=== PATIENT | male | born 1945 | race Caucasian/White ===

== ENCOUNTER 2016-06-05 11:01 | Inpatient (IN) | payer OTHER ==
[~2016-06-05] VITALS: Ht 172.7 cm; Wt 78.9 kg
[~2016-06-05 11:01] MED LIST: ATV5 PO; ISOS30TA35 PO; LSN20 PO; LSX20 PO; MAGN400T6 PO; METO25TA56 PO; METO50TA17 PO; ROSU40TA PO; TERA1CAP63 PO
[2016-06-05] MEDS ORDERED: SODIUM CHLORIDE 0.9% 1000ML 1,000 ML IV STA (11:05)
--- NOTE | 2016-06-05 11:32 | DIAGNOSTIC IMAGING REPORT ---
CHEST ONE VIEW PORTABLE CLINICAL HISTORY: EVALUATE WEAKNESS dyspnea COMPARISON STUDY: 07/21/2015 FINDINGS: Stable cardiomegaly. Prior median sternotomy. Diaphragms smooth. Lungs are clear. IMPRESSION: Stable cardiomegaly. Otherwise negative study Electronically signed by: Maco Bah M.D. 06/05/2016 11:30 AM Dictated Date/Time: 06/05/2016 11:30 AM
[2016-06-05 11:42] LABS: INR 1.3 (0.9-1.1); PARTIAL THROMBOPLASTIN RATIO 1.1; PROTHROMBIN TIME (PATIENT) 13.7 SECONDS (9.0-12.0)
[2016-06-05 11:45] LABS: ISTAT CREATININE 1.7 mg/dl (0.6-1.3); ISTAT HEMOGLOBIN 16.3 g/dl (14.0-18.0); ISTAT IONIZED CALCIUM 0.97 mmol/l (1.12-1.32)
[2016-06-05 11:51] LABS: BUN/CREATININE RATIO 18.4 (10-20); CALCIUM 9.3 mg/dl (8.5-10.1); MAGNESIUM 2.5 mg/dl (1.8-2.4); POTASSIUM 3.8 mmol/L (3.5-5.1)
[2016-06-05 12:00] LABS: URINE APPEARANCE CLEAR (CLEAR); URINE BILIRUBIN NEG (NEG); URINE COLOR YELLOW; URINE NITRITE NEG (NEG); URINE SPECIFIC GRAVITY 1.015 (1.000-1.030); UROBILINOGEN NEG (NEG)
[2016-06-05 12:00] LABS: CKMB/CK RATIO 2.3 (0-3.0); THYROID STIMULATING HORMONE 2.7 uIu/ml (0.300-4.500)
[2016-06-05 12:05] LABS: ANISOCYTOSIS PRESENT; BASO % 0.5 %; BASO ABS # 0.03 K/uL (0-0.2); COMPLETE YES; ECHINOCYTES 1+; EOS % 9.6 %; HEMATOCRIT 42.4 % (42-52); IG% 0.2 %; LYMPH % 20.8 %; LYMPH ABS # 1.37 K/uL (1.2-3.4); MEAN CELL VOLUME 90.2 fL (80-100); MEAN CORPUSCULAR HEMOGLOBIN 30.4 pg (25-34); MEAN CORPUSCULAR HGB CONC 33.7 g/dl (32-36); MONO % 15.2 %; NEUT % 53.7 %; PLATELET COUNT 71 K/uL (130-400); WHITE BLOOD COUNT 6.59 K/uL (4.8-10.8)
[2016-06-05 12:06] LABS: MANUAL MICROSCOPIC REQUIRED? NO; REVIEW REQ? YES
--- NOTE | 2016-06-05 12:10 | DIAGNOSTIC IMAGING REPORT ---
HEAD CT NONCONTRAST CT DOSE: HISTORY: Mental status change EVALUATE WEAKNESS TECHNIQUE: Multiaxial CT images of the head were performed without the use of intravenous contrast. Comparison: None. Findings: The paranasal sinuses and mastoid air cells are clear. The calvarium and skull base are intact. The ventricles and sulci are within normal limits. There is no mass, hematoma, midline shift, or acute infarct. Impression: No acute intracranial abnormality. Electronically signed by: Maco Bah M.D. 06/05/2016 12:09 PM Dictated Date/Time: 06/05/2016 12:08 PM
--- NOTE | 2016-06-05 12:14 | DIAGNOSTIC IMAGING REPORT ---
CERVICAL SPINE CT CT DOSE: 1002.12 mGy.cm HISTORY: Trauma. Pain. fall TECHNIQUE: Multiaxial CT images of the cervical spine were performed and reformatted in the sagittal and coronal plane without the use of contrast. COMPARISON: None. FINDINGS: No fractures. No subluxation. Prevertebral soft tissues and the C1-C2 interval are intact. No pneumothorax. Degenerative disc changes noted throughout. Reversal of the normal cervical curvature IMPRESSION: Degenerative change. Muscular spasm. No acute bony abnormality. Electronically signed by: Maco Bah M.D. 06/05/2016 12:12 PM Dictated Date/Time: 06/05/2016 12:09 PM
--- NOTE | 2016-06-05 12:24 | DIAGNOSTIC IMAGING REPORT ---
CT SCAN OF THE FACIAL BONES WITHOUT IV CONTRAST CLINICAL HISTORY: Fall. COMPARISON STUDY: CT of the brain performed concurrently on 06/05/2016. TECHNIQUE: High-resolution CT scan of the facial bones is performed. Images are reviewed in the axial, sagittal, and coronal planes. IV contrast was not administered for this examination. FINDINGS: The skeletal structures are osteopenic. There is no evidence of facial bone fracture. The bony orbits are intact and the orbital contents are within normal limits. The zygomatic arches, nasal bones, and pterygoid plates are preserved. The maxilla and mandible are intact. There are no layering blood products within the paranasal sinuses. The sinuses and mastoids are clear. The visualized calvarium and upper cervical spine are maintained. Cervical spondylosis is partially imaged. Partially imaged brain parenchyma is within normal limits. There is right periorbital and premalar soft tissue contusion/hematoma. Calcified tonsilliths are observed. There are shotty cervical lymph nodes atherosclerotic calcification is noted in the carotid bulbs. IMPRESSION: 1. There is no evidence of facial bone fracture. 2. Right facial soft tissue contusion/hematoma. Electronically signed by: Adan Tejeda M.D. 06/05/2016 12:22 PM Dictated Date/Time: 06/05/2016 12:19 PM
[2016-06-05] MEDS ORDERED: TERA5CAP PO (13:09)
[2016-06-05] MEDS ORDERED: METO50TA16 PO ×2 (13:09)
[2016-06-05] MEDS ORDERED: TRAZ50TA35 PO (13:09)
[2016-06-05] MEDS ORDERED: CLON0.5T3 PO (13:09)
[2016-06-05] MEDS ORDERED: XYLOCAINE 1%/SOD BICARB 20 ML VIAL INFIL ONE (13:15)
--- NOTE | 2016-06-05 14:00 | EMERGENCY ROOM VISIT NOTE ---
ED Visit Note Patient was seen and evaluated at the request of my attending physician, Dr. Obando, for a right cheek and upper lip laceration. Please see Dr. Obando's dictation for full history of present illness and Emergency Department course outside of this repair. In short, the patient fell today, causing his injuries. On examination the patient has a 1.0 cm linear laceration over the right maxillary sinus as well as a 1.0 cm laceration through the upper lip. These lacerations both gape will require repair. Laceration repair. Patient elects to have their lacerations repaired. Verbal consent was obtained to perform the procedure. There is an abundance of materials available for the procedure. Patient is not allergic to latex. Using sterile technique the wounds were cleaned with Betadine. The area was sterilely draped. 2 ml of 1% buffered lidocaine was used to anesthetize the right cheek laceration and 2 mL of 1% buffered lidocaine was used to anesthetize the upper lip laceration. Once the patient was anesthetized, the wounds were copiously irrigated under pressure with sterile saline. The wounds were explored and there were no deep structures injured such as tendons, bone, or significant blood vessels. The CHEEK laceration was repaired using 3 simple interrupted 6-0 nylon sutures with the wound edges being well approximated. The LIP laceration was repaired using 3 simple interrupted 6-0 nylon sutures with the wound edges being well approximated. Hemostasis was achieved. The areas were cleaned. Patient tolerated the procedure well without complications. Blood loss was negligible. Problem List Medical Problems: (1) Coronary artery disease Status: Chronic (2) Diabetes Status: Chronic (3) Hypertension Status: Chronic Surgical Problems: (1) S/P CABG (coronary artery bypass graft) Status: Resolved Current/Historical Medications Scheduled Lisinopril (Lisinopril), 20 MG PO DAILY Magnesium Oxide (Mag-Ox), 400 MG PO DAILY Metoprolol Tartrate (Lopressor) (Lopressor), 50 MG PO QAM Metoprolol Tartrate (Lopressor) (Lopressor), 25 MG PO QPM Terazosin (Hytrin), 5 MG PO DAILY Trazodone Hcl (Trazodone), 50 MG PO HS Scheduled PRN Clonazepam (Klonopin), 1-2 TABS PO HS PRN for Insomnia Allergies Coded Allergies: No Known Allergies (Unverified , NONE, 07/21/15) Vital Signs Date Time Temp Pulse Resp B/P Pulse Ox O2 Delivery O2 Flow Rate FiO2 06/05/16 13:08 92 06/05/16 12:55 89 20 123/79 97 Room Air 06/05/16 11:27 95 06/05/16 11:20 36.6 94 20 129/92 95 Room Air 06/05/16 11:20 95 Room Air Laboratory Results 06/05/16 11:05 Red Blood Count 4.70, Mean Corpuscular Volume 90.2, Mean Corpuscular Hemoglobin 30.4, Mean Corpuscular Hemoglobin Concent 33.7, Neutrophils (%) (Auto) 53.7, Lymphocytes (%) (Auto) 20.8, Monocytes (%) (Auto) 15.2, Eosinophils (%) (Auto) 9.6, Basophils (%) (Auto) 0.5, Neutrophils # (Auto) 3.55, Lymphocytes # (Auto) 1.37, Monocytes # (Auto) 1.00, Eosinophils # (Auto) 0.63, Basophils # (Auto) 0.03 06/05/16 11:05 Test 06/05/16 11:05 06/05/16 11:29 06/05/16 11:40 White Blood Count 6.59 K/uL (4.8-10.8) Red Blood Count 4.70 M/uL (4.7-6.1) Hemoglobin 14.3 g/dL (14.0-18.0) Hematocrit 42.4 % (42-52) Mean Corpuscular Volume 90.2 fL (80-100) Mean Corpuscular Hemoglobin 30.4 pg (25-34) Mean Corpuscular Hemoglobin Concent 33.7 g/dl (32-36) Platelet Count 71 K/uL (130-400) Neutrophils (%) (Auto) 53.7 % Lymphocytes (%) (Auto) 20.8 % Monocytes (%) (Auto) 15.2 % Eosinophils (%) (Auto) 9.6 % Basophils (%) (Auto) 0.5 % Neutrophils # (Auto) 3.55 K/uL (1.4-6.5) Lymphocytes # (Auto) 1.37 K/uL (1.2-3.4) Monocytes # (Auto) 1.00 K/uL (0.11-0.59) Eosinophils # (Auto) 0.63 K/uL (0-0.5) Basophils # (Auto) 0.03 K/uL (0-0.2) RDW Standard Deviation 65.7 fL (36.4-46.3) RDW Coefficient of Variation 20.0 % (11.5-14.5) Immature Granulocyte % (Auto) 0.2 % Immature Granulocyte # (Auto) 0.01 K/uL (0.00-0.02) Anisocytosis PRESENT Echinocytes 1+ Prothrombin Time 13.7 SECONDS (9.0-12.0) Prothromb Time International Ratio 1.3 (0.9-1.1) Activated Partial Thromboplast Time 27.7 SECONDS (21.0-31.0) Partial Thromboplastin Ratio 1.1 Est Creatinine Clear Calc Drug Dose 32.3 ml/min Estimated GFR () 37.5 Estimated GFR (Non- 32.4 BUN/Creatinine Ratio 18.4 (10-20) Calcium Level 9.3 mg/dl (8.5-10.1) Magnesium Level 2.5 mg/dl (1.8-2.4) Total Bilirubin 1.4 mg/dl (0.2-1) Direct Bilirubin 0.6 mg/dl (0-0.2) Aspartate Amino Transf (AST/SGOT) 40 U/L (15-37) Alanine Aminotransferase (ALT/SGPT) 26 U/L (12-78) Alkaline Phosphatase 409 U/L (45-117) Total Creatine Kinase 96 U/L (39-308) Creatine Kinase MB 2.2 ng/ml (0.5-3.6) Creatine Kinase MB Ratio 2.3 (0-3.0) Troponin I 0.029 ng/ml (0-0.045) Total Protein 7.2 gm/dl (6.4-8.2) Albumin 4.2 gm/dl (3.4-5.0) Lipase 248 U/L (73-393) Thyroid Stimulating Hormone (TSH) 2.700 uIu/ml (0.300-4.500) Bedside Hemoglobin 16.3 g/dl (14.0-18.0) Bedside Hematocrit 48 % (42-52) Bedside Sodium 137 mEq/L (135-144) Bedside Potassium 4.2 mEq/L (3.3-5.0) Bedside Chloride 101 mEq/L (101-112) Bedside Total CO2 23 mEq/l (24-31) Anion Gap 17.0 mmol/L (16-25) Bedside Blood Urea Nitrogen 35 mg/dl (7-18) Bedside Creatinine 1.7 mg/dl (0.6-1.3) Bedside Glucose (other) 92 mg/dl (70-99) Bedside Ionized Calcium (Leif) 0.97 mmol/l (1.12-1.32) Urine Color YELLOW Urine Appearance CLEAR (CLEAR) Urine pH 6.0 (4.5-7.5) Urine Specific [place] 1.015 (1.000-1.030) Urine Protein 1+ (NEG) Urine Glucose (UA) NEG (NEG) Urine Ketones NEG (NEG) Urine Occult Blood TRACE (NEG) Urine Nitrite NEG (NEG) Urine Bilirubin NEG (NEG) Urine Urobilinogen NEG (NEG) Urine Leukocyte Esterase NEG (NEG) Urine WBC (Auto) 1-5 /hpf (0-5) Urine RBC (Auto) 0-4 /hpf (0-4) Urine Hyaline Casts (Auto) 1-5 /lpf (0-5) Urine Epithelial Cells (Auto) 5-10 /lpf (0-5) Urine Bacteria (Auto) NEG (NEG) Urine Renal Epithelial Cells /lpf (0-5) Medications Administered Medications (Trade) Dose Ordered Sig/Mojgan Route Start Time Stop Time Status Last Admin Dose Admin Sodium Chloride (Nss 1000ml) 1,000 ml @ 125 mls/hr Q8H STAT IV 06/05/16 11:05 06/05/16 19:04 06/05/16 13:01 125 MLS/HR Departure Information Referrals Jose Rader III, M.D. (PCP) Patient Instructions [facility]
[2016-06-05] MEDS ORDERED: NITROGLYCERIN 0.4 MG SL PER TAB CHARGE SL PRN (14:45)
[2016-06-05] MEDS ORDERED: IV FLUIDS COMPLETED PRN ×2 (14:45→15:00)
[2016-06-05] MEDS ORDERED: NTRGSL4 PO (15:03)
[2016-06-05] MEDS ORDERED: LORA0.5T12 PO (15:03)
[2016-06-05] MEDS ORDERED: ZNTT/150 PO (15:03)
[2016-06-05] MEDS ORDERED: ACET500T57 PO (15:03)
[2016-06-05] MEDS ORDERED: OMEG12006 PO (15:03)
[2016-06-05] MEDS ORDERED: ASPI-435 PO (15:03)
[2016-06-05] MEDS ORDERED: MULTTAB58 PO (15:03)
[2016-06-05] MEDS ORDERED: ROSU40TA PO (15:03)
[2016-06-05] MEDS ORDERED: TORS10TA14 PO (15:03)
--- NOTE | 2016-06-05 15:05 | Progress Note ---
Progress Note Date of Service Jun 05, 2016. Progress Note ATTENDING ADDENDUM care coordinated with DANILO Ross please refer to her notes for full details, I agree with her notes patient seen and examined, records reviewed by myself as well on exam, patient seen resting in bed, alert, conversant feels sore on his right lower rib cage area, but no dyspnea, cough denies headache, changes with vision, nausea reports episodes of dizziness lately, and this morning prior to "blacking out" denies confusion upon regaining consciousness no other symptoms VS noted and reviewed oriented x 3, not in distress, speaks in sentences with no effort nor accessory muscle use Head and Neck: (+) contusion on the right periorbital area, sutured laceration; (+) contusion on the right lip normal rate, regular rhythm, no murmurs clear breath sounds bilaterally, no rales/wheezes (+) faint erythema on the right lower rib cage with moderate tenderness non distended, soft, nontender no bipedal edema, erythema, warmth no neuro deficits Crea 2.0 Plt 71 EKG LBBB, chronic CT head: No acute process ASSESSMENT/PLAN> 70 year old male with history of Ischemic Cardiomyopathy EF 25-30%, CAD, CABG, HTN, CKD 3, presenting with syncope. SYNCOPE POSSIBLE ORTHOSTASIS Torsemide recently increased, has been having dizziness spells lately, crea increased to 2.0 hold diuretics gentle IV fluids RULE ARRHYTHMIA Tele monitoring RULE OUT PULMONARY EMBOLISM check D dimer if positive, check VQ scan ISCHEMIC CARDIOMYOPATHY EF 25-30% currently appears hypovolemic hold diuretics, gentle IV fluids other diagnoses and plan of care as per DANILO Ross's notes Palmer oMser MD
[2016-06-05] MEDS ORDERED: CLONAZEPAM 0.5 MG TAB PO PRN (15:15)
[2016-06-05] MEDS ORDERED: LORAZEPAM 0.5 MG TAB PO PRN (15:15)
--- NOTE | 2016-06-05 15:28 | EMERGENCY ROOM VISIT NOTE ---
History Report prepared by Veto: Josee Acuna Under the Supervision of: Dr. Jose Obando M.D. First contact with patient: 11:04 Stated Complaint: AMS/FALL History of Present Illness The patient is a 70 year old male who presents to the Emergency Room with complaints of a sudden syncopal episode that occurred prior to arrival. The patient states that he was going to get his taxes done and then he was found outside the [employer] face down. He states that he has been feeling fatigued, but denies any dizziness or lightheadedness today. The patient states that yesterday he had a near syncopal event after becoming dizzy. The patient notes that he had a recent change in his medication. He notes a history of a previous SC and CABG. Pt denies, headache, visual changes, neck pain, chest pain, breathing difficulties, nausea, vomiting, abdominal pain, back pain, extremity pain, numbness, weakness, open wounds, active bleeding, or other complaints. Source of History: patient Onset: prior to arrival Position: other (global) Quality: other (synocpal episode) Timing: other (sudden) Associated Symptoms: + fatigue Review of Systems See HPI for pertinent positives and negatives. A total of ten systems were reviewed and were otherwise negative. Past Medical & Surgical Medical Problems: (1) MARIANELA (acute kidney injury) (2) CHF (congestive heart failure) (3) Coronary artery disease (4) Diabetes (5) Hypertension (6) SOB (shortness of breath) (7) Syncope Surgical Problems: (1) S/P CABG (coronary artery bypass graft) Family History Cancer Diabetes mellitus Heart disease Social History Smoking Status: Former Smoker Marital Status: Housing Status: lives with family Occupation Status: employed Current/Historical Medications Scheduled Aspirin (Aspirin 81), 81 MG PO DAILY Lisinopril (Lisinopril), 20 MG PO HS Magnesium Oxide (Mag-Ox), 400 MG PO DAILY Metoprolol Tartrate (Lopressor) (Lopressor), 50 MG PO QAM Metoprolol Tartrate (Lopressor) (Lopressor), 25 MG PO QPM Multiple Vitamin (Multivitamin), 1 TAB PO DAILY [place]-3 Fatty Acids ([place] 3), 2 CAP PO DAILY Ranitidine (Zantac), 150 MG PO BID Rosuvastatin Calcium (Crestor), 40 MG PO HS Terazosin (Hytrin), 5 MG PO HS Torsemide (Demadex), 10 MG PO UD Scheduled PRN Acetaminophen (Acetaminophen), 2 TAB PO HS PRN for Pain Clonazepam (Klonopin), 1-2 TABS PO HS PRN for Insomnia Lorazepam (Lorazepam), 1 TAB PO BID PRN for Anxiety Nitroglycerin (Nitrostat), 1 TAB PO UD PRN for Chest Pain Allergies Coded Allergies: No Known Allergies (Unverified , NONE, 07/21/15) Physical Exam Vital Signs Date Time Temp Pulse Resp B/P Pulse Ox O2 Delivery O2 Flow Rate FiO2 06/05/16 15:00 96 20 124/96 96 Room Air 06/05/16 13:08 92 06/05/16 12:55 89 20 123/79 97 Room Air 06/05/16 11:27 95 06/05/16 11:20 36.6 94 20 129/92 95 Room Air 06/05/16 11:20 95 Room Air Physical Exam GENERAL: Awake, alert, tired appearing, no acute distress HEAD: Laceration and hematoma to right cheek with bruising noted. Laceration to inner right upper lip and contusion to lower lip and chin. No pittman sign. No raccoon eyes. EYES: Normal conjunctiva. PERRL. EARS: External ears normal. Right TM normal. Left TM normal. NOSE: Abrasion and swelling on nose. OROPHARYNX: Lips, tongue, and mucosa unremarkable. No erythema or exudate. NECK: C-collar in place. No tracheal deviation or JVD. No posterior midline tenderness. No step offs noted. RESPIRATORY: CTA bilaterally CARDIAC: Regular rate, frequent extra beats. ABDOMEN: Inspection reveals no abnormalities. Soft, non distended. No tenderness to palpation. No hernias. PELVIS: Stable to rock. SKIN: Normal. LYMPH: No adenopathy. MUSCULOSKELETAL: Upper and lower extremities are atraumatic. NEURO: GCS 15. Normal sensorium. No sensory or motor deficits noted. Medical Decision & Procedures ER Provider Diagnostic Interpretation: X ray results as stated below per my interpretation and radiologist interpretation. Other radiology results as stated below per my review and radiologist interpretation CT SCAN OF THE FACIAL BONES WITHOUT IV CONTRAST CLINICAL HISTORY: Fall. COMPARISON STUDY: CT of the brain performed concurrently on 06/05/2016. TECHNIQUE: High-resolution CT scan of the facial bones is performed. Images are reviewed in the axial, sagittal, and coronal planes. IV contrast was not administered for this examination. FINDINGS: The skeletal structures are osteopenic. There is no evidence of facial bone fracture. The bony orbits are intact and the orbital contents are within normal limits. The zygomatic arches, nasal bones, and pterygoid plates are preserved. The maxilla and mandible are intact. There are no layering blood products within the paranasal sinuses. The sinuses and mastoids are clear. The visualized calvarium and upper cervical spine are maintained. Cervical spondylosis is partially imaged. Partially imaged brain parenchyma is within normal limits. There is right periorbital and premalar soft tissue contusion/hematoma. Calcified tonsilliths are observed. There are shotty cervical lymph nodes atherosclerotic calcification is noted in the carotid bulbs. IMPRESSION: 1. There is no evidence of facial bone fracture. 2. Right facial soft tissue contusion/hematoma. Electronically signed by: Adan Tejeda M.D. 06/05/2016 12:22 PM Dictated Date/Time: 06/05/2016 12:[address]AST CT DOSE: HISTORY: Mental status change EVALUATE WEAKNESS TECHNIQUE: Multiaxial CT images of the head were performed without the use of intravenous contrast. Comparison: None. Findings: The paranasal sinuses and mastoid air cells are clear. The calvarium and skull base are intact. The ventricles and sulci are within normal limits. There is no mass, hematoma, midline shift, or acute infarct. Impression: No acute intracranial abnormality. Electronically signed by: Maco Bah M.D. 06/05/2016 12:09 PM Dictated Date/Time: 06/05/2016 12:08 PM CHEST ONE VIEW PORTABLE CLINICAL HISTORY: EVALUATE WEAKNESS dyspnea COMPARISON STUDY: 07/21/2015 FINDINGS: Stable cardiomegaly. Prior median sternotomy. Diaphragms smooth. Lungs are clear. IMPRESSION: Stable cardiomegaly. Otherwise negative study Electronically signed by: Maco Bah M.D. 06/05/2016 11:30 AM Dictated Date/Time: 06/05/2016 11:[address] DOSE: 1002.12 mGy.cm HISTORY: Trauma. Pain. fall TECHNIQUE: Multiaxial CT images of the cervical spine were performed and reformatted in the sagittal and coronal plane without the use of contrast. COMPARISON: None. FINDINGS: No fractures. No subluxation. Prevertebral soft tissues and the C1-C2 interval are intact. No pneumothorax. Degenerative disc changes noted throughout. Reversal of the normal cervical curvature IMPRESSION: Degenerative change. Muscular spasm. No acute bony abnormality. Electronically signed by: Maco Bah M.D. 06/05/2016 12:12 PM Dictated Date/Time: 06/05/2016 12:09 PM Laboratory Results 06/05/16 11:05 Red Blood Count 4.70, Mean Corpuscular Volume 90.2, Mean Corpuscular Hemoglobin 30.4, Mean Corpuscular Hemoglobin Concent 33.7, Neutrophils (%) (Auto) 53.7, Lymphocytes (%) (Auto) 20.8, Monocytes (%) (Auto) 15.2, Eosinophils (%) (Auto) 9.6, Basophils (%) (Auto) 0.5, Neutrophils # (Auto) 3.55, Lymphocytes # (Auto) 1.37, Monocytes # (Auto) 1.00, Eosinophils # (Auto) 0.63, Basophils # (Auto) 0.03 06/05/16 11:05 Test 06/05/16 11:05 06/05/16 11:29 06/05/16 11:40 White Blood Count 6.59 K/uL (4.8-10.8) Red Blood Count 4.70 M/uL (4.7-6.1) Hemoglobin 14.3 g/dL (14.0-18.0) Hematocrit 42.4 % (42-52) Mean Corpuscular Volume 90.2 fL (80-100) Mean Corpuscular Hemoglobin 30.4 pg (25-34) Mean Corpuscular Hemoglobin Concent 33.7 g/dl (32-36) Platelet Count 71 K/uL (130-400) Neutrophils (%) (Auto) 53.7 % Lymphocytes (%) (Auto) 20.8 % Monocytes (%) (Auto) 15.2 % Eosinophils (%) (Auto) 9.6 % Basophils (%) (Auto) 0.5 % Neutrophils # (Auto) 3.55 K/uL (1.4-6.5) Lymphocytes # (Auto) 1.37 K/uL (1.2-3.4) Monocytes # (Auto) 1.00 K/uL (0.11-0.59) Eosinophils # (Auto) 0.63 K/uL (0-0.5) Basophils # (Auto) 0.03 K/uL (0-0.2) RDW Standard Deviation 65.7 fL (36.4-46.3) RDW Coefficient of Variation 20.0 % (11.5-14.5) Immature Granulocyte % (Auto) 0.2 % Immature Granulocyte # (Auto) 0.01 K/uL (0.00-0.02) Anisocytosis PRESENT Echinocytes 1+ Prothrombin Time 13.7 SECONDS (9.0-12.0) Prothromb Time International Ratio 1.3 (0.9-1.1) Activated Partial Thromboplast Time 27.7 SECONDS (21.0-31.0) Partial Thromboplastin Ratio 1.1 D-Dimer 1340 ug/L FEU (0-500) Est Creatinine Clear Calc Drug Dose 32.3 ml/min Estimated GFR () 37.5 Estimated GFR (Non- 32.4 BUN/Creatinine Ratio 18.4 (10-20) Calcium Level 9.3 mg/dl (8.5-10.1) Magnesium Level 2.5 mg/dl (1.8-2.4) Total Bilirubin 1.4 mg/dl (0.2-1) Direct Bilirubin 0.6 mg/dl (0-0.2) Aspartate Amino Transf (AST/SGOT) 40 U/L (15-37) Alanine Aminotransferase (ALT/SGPT) 26 U/L (12-78) Alkaline Phosphatase 409 U/L (45-117) Total Creatine Kinase 96 U/L (39-308) Creatine Kinase MB 2.2 ng/ml (0.5-3.6) Creatine Kinase MB Ratio 2.3 (0-3.0) Troponin I 0.029 ng/ml (0-0.045) Total Protein 7.2 gm/dl (6.4-8.2) Albumin 4.2 gm/dl (3.4-5.0) Lipase 248 U/L (73-393) Thyroid Stimulating Hormone (TSH) 2.700 uIu/ml (0.300-4.500) Bedside Hemoglobin 16.3 g/dl (14.0-18.0) Bedside Hematocrit 48 % (42-52) Bedside Sodium 137 mEq/L (135-144) Bedside Potassium 4.2 mEq/L (3.3-5.0) Bedside Chloride 101 mEq/L (101-112) Bedside Total CO2 23 mEq/l (24-31) Anion Gap 17.0 mmol/L (16-25) Bedside Blood Urea Nitrogen 35 mg/dl (7-18) Bedside Creatinine 1.7 mg/dl (0.6-1.3) Bedside Glucose (other) 92 mg/dl (70-99) Bedside Ionized Calcium (Leif) 0.97 mmol/l (1.12-1.32) Urine Color YELLOW Urine Appearance CLEAR (CLEAR) Urine pH 6.0 (4.5-7.5) Urine Specific [place] 1.015 (1.000-1.030) Urine Protein 1+ (NEG) Urine Glucose (UA) NEG (NEG) Urine Ketones NEG (NEG) Urine Occult Blood TRACE (NEG) Urine Nitrite NEG (NEG) Urine Bilirubin NEG (NEG) Urine Urobilinogen NEG (NEG) Urine Leukocyte Esterase NEG (NEG) Urine WBC (Auto) 1-5 /hpf (0-5) Urine RBC (Auto) 0-4 /hpf (0-4) Urine Hyaline Casts (Auto) 1-5 /lpf (0-5) Urine Epithelial Cells (Auto) 5-10 /lpf (0-5) Urine Bacteria (Auto) NEG (NEG) Urine Renal Epithelial Cells /lpf (0-5) Laboratory results reviewed by me Medications Administered Medications (Trade) Dose Ordered Sig/Mojgan Route Start Time Stop Time Status Last Admin Dose Admin Sodium Chloride (Nss 1000ml) 1,000 ml @ 125 mls/hr Q8H STAT IV 06/05/16 11:05 06/05/16 19:04 06/05/16 13:01 125 MLS/HR ECG Indication: syncope Rate (beats per minute): 91 Rhythm: sinus rhythm Findings: LBBB, PVC (frequent), left axis deviation Comparison ECG Date: 07/21/15 Change: no significant change ED Course 1105: Ordered Sodium Chloride 1000 ml @ 125 mls/hr IV. 1122: The patient was evaluated in room C2B. A complete history and physical exam was performed. 1315: The lacerations were repaired by Dieudonne Shah PA-C. See his note for further detail. Ordered Lidocaine HCl 20 ml INFIL. 1343: I discussed the patients case with Feliciano Novoa PA-C. She is going to evaluate the patient for further treatment. 1348: I reevaluated the patient and he is resting comfortably. I discussed the exam findings with him and I discussed the treatment plan. He verbalized complete understanding and agreement. He will be evaluated for further treatment. Medical Decision Triage Nursing notes reviewed. The patient's presentation and history were concerning for syncope. Etiologies such as vasovagal event, fracture, soft tissue, infection, hypoglycemia, electrolyte abnormalities, cardiac sources, intracerebral event, toxicologic, neurologic, as well as others were entertained. The patient was evaluated. He did suffer some soft tissue lacerations and contusions. His ECG was abnormal but was not significantly different than prior. His imaging did not reveal any evidence of intracranial bleeding. Soft tissue injury only. No fracture. His CBC and chemistry are unremarkable. He did have some mild elevation of his creatinine compared to prior. The patient' s urinalysis was unremarkable. LFTs were minimally elevated although the patient denies any preceding GI symptoms. Laceration repair done by Dieudonne Shah PA-C. The patient was reassessed and was doing well. He had a consultation placed with internal medicine. The patient was evaluated in the Emergency Room due to his sudden syncopal episode. The chart was completed utilizing [employer] Speech voice recognition software. Grammatical errors, random word insertions, pronoun errors, and incomplete sentences are an occasional consequence of this system due to software limitations, ambient noise, and hardware issues. Any formal questions or concerns about the content, text, or information contained within the body of this dictation should be directly addressed to the physician for clarification. Consults Time Called: 1340 Consulting Physician: Feliciano Novoa PA-C Returned Call: 1348 I discussed the patients case with Feliciano Novoa PA-C. She is going to evaluate the patient for further treatment. Impression Primary Impression: Syncope Additional Impressions: Laceration of right cheek Laceration of lip Facial contusion Scribe Attestation The scribe's documentation has been prepared under my direction and personally reviewed by me in its entirety. I confirm that the note above accurately reflects all work, treatment, procedures, and medical decision making performed by me. Departure Information Dispostion Being Evaluated By Hospitalist Referrals Jose Rader III, M.D. (PCP) Problem Qualifiers Primary Impression: Syncope Syncope type: unspecified Qualified Codes: R55 - Syncope and collapse Additional Impressions: Laceration of right cheek Encounter type: initial encounter Qualified Codes: S01.411A - Laceration without foreign body of right cheek and temporomandibular area, initial encounter Laceration of lip Encounter type: initial encounter Qualified Codes: S01.511A - Laceration without foreign body of lip, initial encounter Facial contusion Encounter type: initial encounter Qualified Codes: S00.83XA - Contusion of other part of head, initial encounter
--- NOTE | 2016-06-05 15:56 | History and Physical ---
History & Physical Date & Time of Service: Jun 05, 2016 at 14:49 Chief Complaint: Ams/Fall Primary Care Physician: Jose Rader III, M.D. History of Present Illness Source: patient, clinic records This is a 70 year old male with PMH of ischemic cardiomyopathy, EF 25-29% in 2016, LBBB, frequent PVC's, CAD s/p CABG, HTN, LUDWIN on CPAP, and other problems listed below who presents to the ED with syncope. Patient was recently seen in clinic by An Hanson PA-C on 05/28/16 was noted to be in acute decompensated HF with volume overload and torsemide dose was increased to 20 mg qam. Then yesterday patient was instructed to increase to 20 mg qam and 10 mg in afternoon. Yesterday and today felt dizzy described as spinning sensation while standing. This has happened intermittently in the past attributed to BP medication. Today did not take torsemide and did not eat breakfast. He was feeling tired today, then while walking in parking lot, possibly felt dizzy beforehand, then had syncopal episode. He was found by a passerby who called 911. Patient awoke when EMS had already arrived. Unclear how long he was down. No reported seizure activity. Was oriented when he awoke. He sustained facial lacerations which were sutured in the ER. Has soreness right rib area. No other injury. He reported having 3/10 central non-radiating chest burning while in the ER attributed to indigestion which resolved when he drank water. He reports similar discomfort in the past which resolved with Tums. Has ongoing intermittent nausea and decreased appetite for months. Patient notes increased CRESPO x 1 week. Noticed bilateral LE edema yesterday evening. Weight is up approx 2 kg from cardiology visit on 05/28/16. Has increased dry cough past few days with postnasal drip. He denies fever, chills, diaphoresis, CARRILLO, vision change, weakness, numbness, dyspnea at rest, orthopnea, palpitations, vomiting, diarrhea , calf pain. No hx of VTE. Denies hx of abnormal bleeding. Past Medical/Surgical History Medical Problems: (1) Coronary artery disease Status: Chronic (2) Dyslipidemia Status: Chronic (3) Frequent PVCs Status: Chronic (4) Hypertension Status: Chronic (5) Ischemic cardiomyopathy Permanent Comment: EF 25-29% on 04/2016 echo Status: Chronic (6) LBBB (left bundle branch block) Status: Chronic (7) LUDWIN on CPAP Status: Chronic (8) Osteoarthritis Status: Chronic (9) Psoriatic arthritis Status: Chronic Surgical Problems: (1) S/P CABG (coronary artery bypass graft) Status: Resolved Family History Cancer Cardiac disorder FATHER (CHF) MOTHER (CHF) SISTER Depression Diabetes mellitus SISTER Heart disease BROTHER Social History Smoking Status: Former Smoker (quit decades ago) Alcohol Use: occasionally Drug Use: none Marital Status: Housing status: lives with family Occupational Status: employed Multi-Drug Resistant Organisms History of MDRO: No Allergies Coded Allergies: No Known Allergies (Unverified , NONE, 07/21/15) Home Medications Scheduled Aspirin (Aspirin 81), 81 MG PO DAILY Lisinopril (Lisinopril), 20 MG PO HS Magnesium Oxide (Mag-Ox), 400 MG PO DAILY Metoprolol Tartrate (Lopressor) (Lopressor), 50 MG PO QAM Metoprolol Tartrate (Lopressor) (Lopressor), 25 MG PO QPM Multiple Vitamin (Multivitamin), 1 TAB PO DAILY Longford-3 Fatty Acids ([place]ford 3), 2 CAP PO DAILY Ranitidine (Zantac), 150 MG PO BID Rosuvastatin Calcium (Crestor), 40 MG PO HS Terazosin (Hytrin), 5 MG PO HS Torsemide (Demadex), 10 MG PO UD Scheduled PRN Acetaminophen (Acetaminophen), 2 TAB PO HS PRN for Pain Clonazepam (Klonopin), 1-2 TABS PO HS PRN for Insomnia Lorazepam (Lorazepam), 1 TAB PO BID PRN for Anxiety Nitroglycerin (Nitrostat), 1 TAB PO UD PRN for Chest Pain Review of Systems Ten point ROS performed with pertinent positives and negatives noted in HPI. 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) Head: normocephalic, + evidence of trama Eyes: normal inspection, PERRL, EOMI ENT: hearing grossly normal, pharynx normal, + pertinent finding (dry oral mucosa) Neck: supple, no JVD, trachea midline Respiratory/Chest: lungs clear, normal breath sounds, no respiratory distress, no accessory muscle use Cardiovascular: regular rate, rhythm, no murmur Abdomen/GI: normal bowel sounds, non tender, soft Extremities/Musculoskelatal: no calf tenderness, no pedal edema Neurologic/Psych: alert, normal mood/affect, oriented x 3, + pertinent finding (grossly nonfocal) Skin: warm/dry, + pertinent finding (ecchymosis and sutured laceration right periorbital area, repaired laceration on upper lip) Diagnostics Laboratory Results Results Past 24 Hours Test 06/05/16 11:05 06/05/16 11:29 06/05/16 11:40 06/05/16 14:45 Range/Units White Blood Count 6.59 4.8-10.8 K/uL Red Blood Count 4.70 4.7-6.1 M/uL Hemoglobin 14.3 14.0-18.0 g/dL Hematocrit 42.4 42-52 % Mean Corpuscular Volume 90.2 80-100 fL Mean Corpuscular Hemoglobin 30.4 25-34 pg Mean Corpuscular Hemoglobin Concent 33.7 32-36 g/dl Platelet Count 71 130-400 K/uL Neutrophils (%) (Auto) 53.7 % Lymphocytes (%) (Auto) 20.8 % Monocytes (%) (Auto) 15.2 % Eosinophils (%) (Auto) 9.6 % Basophils (%) (Auto) 0.5 % Neutrophils # (Auto) 3.55 1.4-6.5 K/uL Lymphocytes # (Auto) 1.37 1.2-3.4 K/uL Monocytes # (Auto) 1.00 0.11-0.59 K/uL Eosinophils # (Auto) 0.63 0-0.5 K/uL Basophils # (Auto) 0.03 0-0.2 K/uL RDW Standard Deviation 65.7 36.4-46.3 fL RDW Coefficient of Variation 20.0 11.5-14.5 % Immature Granulocyte % (Auto) 0.2 % Immature Granulocyte # (Auto) 0.01 0.00-0.02 K/uL Anisocytosis PRESENT Echinocytes 1+ Prothrombin Time 13.7 9.0-12.0 SECONDS Prothromb Time International Ratio 1.3 0.9-1.1 Activated Partial Thromboplast Time 27.7 21.0-31.0 SECONDS Partial Thromboplastin Ratio 1.1 Sodium Level 139 136-145 mmol/L Potassium Level 3.8 3.5-5.1 mmol/L Chloride Level 100 98-107 mmol/L Carbon Dioxide Level 29 21-32 mmol/L Anion Gap 10.0 17.0 16-25 mmol/L Blood Urea Nitrogen 37 7-18 mg/dl Creatinine 2.00 0.60-1.40 mg/dl Est Creatinine Clear Calc Drug Dose 32.3 ml/min Estimated GFR () 37.5 Estimated GFR (Non- 32.4 BUN/Creatinine Ratio 18.4 10-20 Random Glucose 91 70-99 mg/dl Calcium Level 9.3 8.5-10.1 mg/dl Magnesium Level 2.5 1.8-2.4 mg/dl Total Bilirubin 1.4 0.2-1 mg/dl Direct Bilirubin 0.6 0-0.2 mg/dl Aspartate Amino Transf (AST/SGOT) 40 15-37 U/L Alanine Aminotransferase (ALT/SGPT) 26 12-78 U/L Alkaline Phosphatase 409 45-117 U/L Total Creatine Kinase 96 39-308 U/L Creatine Kinase MB 2.2 0.5-3.6 ng/ml Creatine Kinase MB Ratio 2.3 0-3.0 Troponin I 0.029 0-0.045 ng/ml Total Protein 7.2 6.4-8.2 gm/dl Albumin 4.2 3.4-5.0 gm/dl Lipase 248 73-393 U/L Thyroid Stimulating Hormone (TSH) 2.700 0.300-4.500 uIu/ml Bedside Hemoglobin 16.3 14.0-18.0 g/dl Bedside Hematocrit 48 42-52 % Bedside Sodium 137 135-144 mEq/L Bedside Potassium 4.2 3.3-5.0 mEq/L Bedside Chloride 101 101-112 mEq/L Bedside Total CO2 23 24-31 mEq/l Bedside Blood Urea Nitrogen 35 7-18 mg/dl Bedside Creatinine 1.7 0.6-1.3 mg/dl Bedside Glucose (other) 92 70-99 mg/dl Bedside Ionized Calcium (Leif) 0.97 1.12-1.32 mmol/l Urine Color YELLOW Urine Appearance CLEAR CLEAR Urine pH 6.0 4.5-7.5 Urine Specific [place] 1.015 1.000-1.030 Urine Protein 1+ NEG Urine Glucose (UA) NEG NEG Urine Ketones NEG NEG Urine Occult Blood TRACE NEG Urine Nitrite NEG NEG Urine Bilirubin NEG NEG Urine Urobilinogen NEG NEG Urine Leukocyte Esterase NEG NEG Urine WBC (Auto) 1-5 0-5 /hpf Urine RBC (Auto) 0-4 0-4 /hpf Urine Hyaline Casts (Auto) 1-5 0-5 /lpf Urine Epithelial Cells (Auto) 5-10 0-5 /lpf Urine Bacteria (Auto) NEG NEG Urine Renal Epithelial Cells 0-5 /lpf Microbiology Results 06/05/16 Blood Culture, Received Pending 06/05/16 Blood Culture, Received Pending 06/05/16 Urine Culture, Received Pending Diagnostic Radiology CT SCAN OF THE FACIAL BONES WITHOUT IV CONTRAST CLINICAL HISTORY: Fall. COMPARISON STUDY: CT of the brain performed concurrently on 06/05/2016. TECHNIQUE: High-resolution CT scan of the facial bones is performed. Images are reviewed in the axial, sagittal, and coronal planes. IV contrast was not administered for this examination. FINDINGS: The skeletal structures are osteopenic. There is no evidence of facial bone fracture. The bony orbits are intact and the orbital contents are within normal limits. The zygomatic arches, nasal bones, and pterygoid plates are preserved. The maxilla and mandible are intact. There are no layering blood products within the paranasal sinuses. The sinuses and mastoids are clear. The visualized calvarium and upper cervical spine are maintained. Cervical spondylosis is partially imaged. Partially imaged brain parenchyma is within normal limits. There is right periorbital and premalar soft tissue contusion/hematoma. Calcified tonsilliths are observed. There are shotty cervical lymph nodes atherosclerotic calcification is noted in the carotid bulbs. IMPRESSION: 1. There is no evidence of facial bone fracture. 2. Right facial soft tissue contusion/hematoma. HEAD CT NONCONTRAST CT DOSE: HISTORY: Mental status change EVALUATE WEAKNESS TECHNIQUE: Multiaxial CT images of the head were performed without the use of intravenous contrast. Comparison: None. Findings: The paranasal sinuses and mastoid air cells are clear. The calvarium and skull base are intact. The ventricles and sulci are within normal limits. There is no mass, hematoma, midline shift, or acute infarct. Impression: No acute intracranial abnormality. CHEST ONE VIEW PORTABLE CLINICAL HISTORY: EVALUATE WEAKNESS dyspnea COMPARISON STUDY: 07/21/2015 FINDINGS: Stable cardiomegaly. Prior median sternotomy. Diaphragms smooth. Lungs are clear. IMPRESSION: Stable cardiomegaly. Otherwise negative study CERVICAL SPINE CT CT DOSE: 1002.12 mGy.cm HISTORY: Trauma. Pain. fall TECHNIQUE: Multiaxial CT images of the cervical spine were performed and reformatted in the sagittal and coronal plane without the use of contrast. COMPARISON: None. FINDINGS: No fractures. No subluxation. Prevertebral soft tissues and the C1-C2 interval are intact. No pneumothorax. Degenerative disc changes noted throughout. Reversal of the normal cervical curvature IMPRESSION: Degenerative change. Muscular spasm. No acute bony abnormality. EKG sinus rhythm with PVCs, LBBB, no significant change from prior EKG Impression Assessment and Plan SYNCOPE Possible orthostasis, r/o arrhythmia, r/o PE Torsemide recently increased as outpatient, having dizziness with standing, BUN / Cr elevated Gentle IVF's; Check orthostatic vital signs tonight Monitor in telemetry to r/o arrhythmia given history of severe cardiomyopathy Rule out PE- D dimer positive, VQ scan ordered Initial troponin negative; EKG appears unchanged Trend serial cardiac enzymes Consult cardiology ISCHEMIC CARDIOMYOPATHY EF 25-29% in Apr 2016 Currently appears dry Hold diuretics Gentle IVF's MARIANELA Creat is 2.0; was 1.8 on 05/28 -> 1.5 on 06/02 Likely due to increased torsemide as outpatient Hold torsemide and lisinopril Gentle IVF's Monitor renal function THROMBOCYTOPENIA Platelets 71; recently in 80s as outpatient Hold aspirin for now Denies bleeding Monitor CBC CAD S/P CABG Hold aspirin for thrombocytopenia; hold PETE-I for MARIANELA Continue beta kayla and statin HYPERTENSION BP is stable Lisinopril held for MARIANELA Continue metoprolol and terazosin LUDWIN Continue CPAP GERD Continue ranitidine CODE STATUS Full code per my discussion with the patient DVT PROPHYLAXIS SCD's due to thrombocytopenia Patient seen in collaboration with Dr. Moser. Please see his addendum. VTE Prophylaxis VTE Risk Assessment Done? Y/N: Yes Risk Level: Moderate
[2016-06-05 17:51] LABS: CKMB/CK RATIO 2.3 (0-3.0)
[2016-06-05] MEDS: ACETAMINOPHEN 325 MG TAB PO PRN (20:32)
[2016-06-05] MEDS: SODIUM CHLORIDE 0.9% 1000ML 1,000 ML IV SCH (21:18)
--- NOTE | 2016-06-05 21:26 | DIAGNOSTIC IMAGING REPORT ---
NUCLEAR MEDICINE PERFUSION SCAN CLINICAL HISTORY: Syncope. Elevated d-dimer. COMPARISON STUDY: Ventilation imaging could not be performed in this patient due to lacerations to the lips and nose. Therefore, only perfusion imaging was performed. 6 mCi of low particle technetium 99m MAA was injected IV at 8:45 PM on June 06, 2015. Immediately following injection, imaging of the chest was performed in the typical projections. FINDINGS: This exam is compromised by the lack of ventilation imaging. No segmental defects are identified on this examination. IMPRESSION: Exam compromised given the lack of ventilation imaging but study is likely low probability for pulmonary embolus. Electronically signed by: Joni Rendon M.D. 06/05/2016 9:25 PM Dictated Date/Time: 06/05/2016 9:23 PM
[2016-06-05] MEDS: TRAMADOL HCL 50 MG TAB PO PRN (21:36)
[2016-06-05] MEDS: RANITIDINE HCL 150 MG TAB PO SCH (21:37)
[2016-06-05] MEDS: METOPROLOL TARTRATE 25 MG TAB PO SCH (21:38)
[2016-06-05] MEDS: ROSUVASTATIN CALCIUM 20 MG TAB PO SCH (21:38)
[2016-06-05 22:09] VITALS: BP 145/95; PULSE 97; TEMP 36.4; Ht 172.7 cm; Wt 78.9 kg
[2016-06-05 23:57] LABS: CKMB/CK RATIO 2.9 (0-3.0)
[2016-06-06] VITALS (7 sets, daily range): BP systolic 87–133; BP diastolic 51–83; PULSE 74–93; TEMP 36.4–36.7; O2SAT 90–97
[2016-06-06] MEDS: ACETAMINOPHEN 325 MG TAB PO PRN (03:42)
[2016-06-06] MEDS: ONDANSETRON INJ 2 MG/ML 2 ML VIAL IV PRN ×3 (03:42→22:53)
[2016-06-06] MEDS: TRAMADOL HCL 50 MG TAB PO PRN ×2 (03:42→19:35)
[2016-06-06] MEDS: SODIUM CHLORIDE 0.9% 1000ML 1,000 ML IV SCH ×2 (05:04→16:59)
[2016-06-06 07:22] LABS: HEMATOCRIT 37.2 % (42-52); MEAN CELL VOLUME 87.7 fL (80-100); MEAN CORPUSCULAR HGB CONC 34.1 g/dl (32-36); RED BLOOD COUNT 4.24 M/uL (4.7-6.1); WHITE BLOOD COUNT 4.38 K/uL (4.8-10.8)
[2016-06-06 07:35] LABS: PLATELET COUNT 64 K/uL (130-400)
[2016-06-06 07:46] LABS: BUN/CREATININE RATIO 18.6 (10-20); CALCIUM 8.3 mg/dl (8.5-10.1); CREATININE 1.7 mg/dl (0.60-1.40); MAGNESIUM 2.4 mg/dl (1.8-2.4); POTASSIUM 4.3 mmol/L (3.5-5.1)
[2016-06-06] MEDS ORDERED: OMEGA-3 (PURIFIED FISH OIL) 1 GM CAP PO SCH (09:00)
[2016-06-06] MEDS: MULTIVITAMIN TAB PO SCH (09:01)
[2016-06-06] MEDS: RANITIDINE HCL 150 MG TAB PO SCH ×2 (09:02→21:03)
[2016-06-06] MEDS: METOPROLOL TARTRATE 50 MG TAB PO SCH (10:30)
--- NOTE | 2016-06-06 10:47 | Clinical Documentation Query ---
CLINICAL DOCUMENTATION QUERY 70 year old male who presents to the Emergency Room with complaints of a sudden syncopal episode Query #1/2 In your clinical opinion is this patient being managed for: ( x ) Chronic systolic (reduced EF) heart failure monitored with tele, daily wieghts, and I/O's ( ) Other explanation of clinical findings (Please Explain) ( ) Unable to determine (Please Define) ( ) Need to Discuss ( ) Not Agree The medical record reflects the following clinical findings, treatment, and risk factors. Clinical Indicators: Ischemic cardiomyopathy (EF-25-29%) on PO Lasix at home. Treatment: Telemetry, daily weights, I/O's, Lopressor, Risk Factors: Ischemic cardiomyopathy, Query #2/2 In your clinical opinion is this patient being managed for: ( ) Atrial flutter evidenced ECG and telemetry rhythm strip interpretation treated with telemetry and Lopressor. ( ) Other explanation of clinical findings (Please Explain) ( ) Unable to determine (Please Define) ( ) Need to Discuss ( ) Not Agree The medical record reflects the following clinical findings, treatment, and risk factors. Clinical Indicators: ECG shows atrial flutter. Treatment: Lopressor Risk Factors: Age, CAD, Please clarify and document your clinical opinion in the progress notes and discharge summary. Terms such as "probable", "suspected", "likely", "questionable", "possible", or "still to be ruled out" are acceptable. IF IN AGREEMENT, YOU MUST DOCUMENT ABOVE DIAGNOSTIC STATEMENT IN DAILY PROGRESS NOTES AND DISCHARGE SUMMARY. This document is not part of the patient's record. Thank You, Dion Garcia, TRIPP [phone]
--- NOTE | 2016-06-06 11:23 | Cardiology Consultation ---
Cardiology Consultation Date of Service Jun 06, 2016. (An Hanson, JUAN F) Cardiology Consultation Cardiology Consultation: HPI: Patient is a 70 year old male who follows with Dr. Chan for routine cardiac care. He has a complex past history including CAD with long-standing diffuse multivessel disease status post coronary artery bypass grafting x3 in 1995, receiving a NYE graft to LAD and 2 saphenous vein grafts with poor surgical targets defined at the time surgery. Patient had been doing well, active on a regular basis until approx July 2015 when he was admitted for acute CHF exacerbation and found to have reduced LV function at 35-40% at that time. patient was diuresed and symptoms improved. Furosemide was titrated as outpatient over the last 6 months. however patient attributed persistent nausea to medications. He has a long history of "intolerances" to many medications. He failed trials of carvedilol and toprol. He resumed metoprolol tartrate. He was previously on furosemide and at recent office visit with Dr. Chan, furosemide was discontinued in favor of torsemide 10 mg every other day. Patient increased this to 10 mg daily on his own. At his 6 week f/u appointment, patient noted SOB, LE edema and weight gain. He was up approx 20 lbs with evidence of volume overload. At that time torsemide was increased from 10 daily to 20 mg daily. Renal function improved with this titration. Lisinopril was reduced due to AM dizziness and hyperkalemia. We discussed stopping terazosin due to AM dizziness but patient did not want to stop due to BPH and urination issues. He also had updated 2D echo earlier this month demonstrating continued decline in LV function with EF 25%. He was agreeable to proceeding with EP consultation for consideration of BIV ICD and this was scheduled for June. He had f/u labs this week which demonstrated improving renal function with diuresis. He was called to see how he was feeling. He reported continued SOB with significant abdominal bloating and weight still above baseline. Due to these symptoms, he was instructed to increase torsemide again to 20 mg in AM and additional 10 mg in afternoon for the next few days until close f/u scheduled next week. In the interim, patient was admitted yesterday to [facility] after sustaining a syncopal episode while walking across the parking lot. he reported having dizziness that AM. Took metoprolol but did not take torsemide. He also did not eat due to persistent nausea. Bystander called 911 after finding patient. No witnesses during time of collapse. Patient awoke when EMS arrived. No loss of bladder/bowel function. No seizure like activity. Upon arrival to ER, he was found to be in atrial flutter with RVR on EKG. He was not started on IV heparin due to significant thrombocytopenia. He was started on IV fluids for orthostatic hypotension. He was continued on his home dose metoprolol with holding parameters. Diuretics and lisinopril were held due to rising creatinine. At time of consult patient feeling ok. Family at bedside. He has significant hematoma on left side of face with cheek and mouth lacerations needing sutures. He denies recurrent syncope or near syncope since admission. he states he is "always dizzy" and this is not a new complaint for him. This is his first true syncopal episode. He denied chest pain prior to event. SOB at baseline. He currently notes increased abdominal bloating this AM after receiving IV fluids overnight. he also notes increased "tightness" to his LE. No specific orthopnea , PND. Review of Systems: See HPI for pertinent positives. All other 10 point review of systems is negative. Patient Active Problem List CAD s/p remote CABG x3 in 1995 Persistent insomnia HTN, goal below 140/90 DYSLIPIDEMIA, GOAL LDL BELOW 100 Psoriatic arthropathy (HCC) Generalized osteoarthritis Ischemic cardiomyopathy LBBB Liver cirrhosis with hepatic steatosis and ascites per Ct scan in 07/2015 Surgical Problems: S/P CABG (coronary artery bypass graft) Family History: Family history of CAD in mother and brother. Social History: Former tobacco abuse. . Lives with . Review of patient's allergies indicates: No Known Allergies Reported Home Medications Medications Dose Route/Sig Max Daily Dose Days Date Category Dose Instructions Demadex (Torsemide) 10 Mg Tab 10 Mg PO UD 06/05/16 Reported Take 20 mg by mouth in AM and 10 mg by mouth in afternoon. Zantac (Ranitidine HCl) 150 Mg Tab 150 Mg PO BID 06/05/16 Reported Rampart 3 (Rampart-3 Fatty Acids) 1 Cap Cap 2 Cap PO DAILY 06/05/16 Reported Nitrostat (Nitroglycerin) 0.4 Mg/1 Tab Subl 1 Tab PO UD PRN 06/05/16 Reported Multivitamin (Multiple Vitamin) 1 Tab Tab 1 Tab PO DAILY 06/05/16 Reported Lorazepam 0.5 Mg Tab 1 Tab PO BID PRN 30 06/05/16 Reported Crestor (Rosuvastatin Calcium) 40 Mg Tab 40 Mg PO HS 06/05/16 Reported Aspirin 81 (Aspirin) 81 Mg Tab 81 Mg PO DAILY 06/05/16 Reported Acetaminophen 500 Mg Tab 2 Tab PO HS PRN 30 06/05/16 Reported Hytrin (Terazosin HCl) 5 Mg Cap 5 Mg PO HS 06/05/16 Reported Lopressor (Metoprolol Tartrate) 50 Mg Tab 25 Mg PO QPM 06/05/16 Reported Lopressor (Metoprolol Tartrate) 50 Mg Tab 50 Mg PO QAM 06/05/16 Reported Klonopin (Clonazepam) 0.5 Mg Tab 1-2 Tabs PO HS PRN 06/05/16 Reported Mag-Ox (Magnesium Oxide) 400 Mg Tab 400 Mg PO DAILY 07/21/15 Reported Lisinopril 20 Mg Tab 20 Mg PO HS 07/21/15 Reported PHYSICAL EXAMINATION: Last 8 Hrs Date Time Temp Pulse Resp B/P Pulse Ox O2 Delivery O2 Flow Rate FiO2 06/06/16 08:10 36.6 77 16 87/51 93 Room Air 98/71 06/06/16 04:00 36.7 77 18 103/68 90 Room Air 06/06/16 04:00 Room Air General: NAD. A+Ox3. HEENT: cheek laceration, signfiant hematoma right side of face. PERRL. EOMI. Conjunctiva and sclera clear. NECK: +JVD Carotid upstrokes are brisk. Heart: RRR. S1 and S2 with possible gallop/rub on exam. No audible murmurs PMI non displaced. Lungs: Clear to auscultation and percussion. No wheezes, rhonchi, rales. Abdomen: Normal bowel sounds. Soft. Nontender. No masses or organomegaly. No abdominal bruits. Extremities: 1+ LE edema. No clubbing or cyanosis. Pulses: radial=2/4, posterior tibial=2/4, dorsalis pedis = 2/4. NEURO: No focal deficits. PSYCH: Normal. DATA: EKG on admission: Atrial flutter with frequent Premature ventricular complexes Left axis deviation Left bundle branch block Abnormal ECG When compared with ECG of 10:12, Atrial flutter has replaced Sinus rhythm Chest xray - Clear. No acute process Imaging studies reviewed - No acute fractures. Head CT unremarkable. Telemetry reviewed - persistent rate controlled atrial flutter. Last 24 Hours Test 06/05/16 11:05 06/05/16 11:29 06/05/16 11:40 06/05/16 17:08 White Blood Count 6.59 K/uL Red Blood Count 4.70 M/uL Hemoglobin 14.3 g/dL Hematocrit 42.4 % Mean Corpuscular Volume 90.2 fL Mean Corpuscular Hemoglobin 30.4 pg Mean Corpuscular Hemoglobin Concent 33.7 g/dl Platelet Count 71 K/uL Neutrophils (%) (Auto) 53.7 % Lymphocytes (%) (Auto) 20.8 % Monocytes (%) (Auto) 15.2 % Eosinophils (%) (Auto) 9.6 % Basophils (%) (Auto) 0.5 % Neutrophils # (Auto) 3.55 K/uL Lymphocytes # (Auto) 1.37 K/uL Monocytes # (Auto) 1.00 K/uL Eosinophils # (Auto) 0.63 K/uL Basophils # (Auto) 0.03 K/uL RDW Standard Deviation 65.7 fL RDW Coefficient of Variation 20.0 % Immature Granulocyte % (Auto) 0.2 % Immature Granulocyte # (Auto) 0.01 K/uL Anisocytosis PRESENT Echinocytes 1+ Prothrombin Time 13.7 SECONDS Prothromb Time International Ratio 1.3 Activated Partial Thromboplast Time 27.7 SECONDS Partial Thromboplastin Ratio 1.1 D-Dimer 1340 ug/L FEU Sodium Level 139 mmol/L Potassium Level 3.8 mmol/L Chloride Level 100 mmol/L Carbon Dioxide Level 29 mmol/L Anion Gap 10.0 mmol/L 17.0 mmol/L Blood Urea Nitrogen 37 mg/dl Creatinine 2.00 mg/dl Est Creatinine Clear Calc Drug Dose 32.3 ml/min Estimated GFR () 37.5 Estimated GFR (Non- 32.4 BUN/Creatinine Ratio 18.4 Random Glucose 91 mg/dl Calcium Level 9.3 mg/dl Magnesium Level 2.5 mg/dl Total Bilirubin 1.4 mg/dl Direct Bilirubin 0.6 mg/dl Aspartate Amino Transf (AST/SGOT) 40 U/L Alanine Aminotransferase (ALT/SGPT) 26 U/L Alkaline Phosphatase 409 U/L Total Creatine Kinase 96 U/L 79 U/L Creatine Kinase MB 2.2 ng/ml 1.8 ng/ml Creatine Kinase MB Ratio 2.3 2.3 Troponin I 0.029 ng/ml 0.056 ng/ml Total Protein 7.2 gm/dl Albumin 4.2 gm/dl Lipase 248 U/L Thyroid Stimulating Hormone (TSH) 2.700 uIu/ml Bedside Hemoglobin 16.3 g/dl Bedside Hematocrit 48 % Bedside Sodium 137 mEq/L Bedside Potassium 4.2 mEq/L Bedside Chloride 101 mEq/L Bedside Total CO2 23 mEq/l Bedside Blood Urea Nitrogen 35 mg/dl Bedside Creatinine 1.7 mg/dl Bedside Glucose (other) 92 mg/dl Bedside Ionized Calcium (Leif) 0.97 mmol/l Urine Color YELLOW Urine Appearance CLEAR Urine pH 6.0 Urine Specific [place] 1.015 Urine Protein 1+ Urine Glucose (UA) NEG Urine Ketones NEG Urine Occult Blood TRACE Urine Nitrite NEG Urine Bilirubin NEG Urine Urobilinogen NEG Urine Leukocyte Esterase NEG Urine WBC (Auto) 1-5 /hpf Urine RBC (Auto) 0-4 /hpf Urine Hyaline Casts (Auto) 1-5 /lpf Urine Epithelial Cells (Auto) 5-10 /lpf Urine Bacteria (Auto) NEG Urine Renal Epithelial Cells /lpf Test 06/05/16 23:15 06/06/16 07:10 Total Creatine Kinase 86 U/L Creatine Kinase MB 2.5 ng/ml Creatine Kinase MB Ratio 2.9 Troponin I 0.066 ng/ml White Blood Count 4.38 K/uL Red Blood Count 4.24 M/uL Hemoglobin 12.7 g/dL Hematocrit 37.2 % Mean Corpuscular Volume 87.7 fL Mean Corpuscular Hemoglobin 30.0 pg Mean Corpuscular Hemoglobin Concent 34.1 g/dl RDW Standard Deviation 64.1 fL RDW Coefficient of Variation 20.2 % Platelet Count 64 K/uL Mean Platelet Volume 11.0 fL Sodium Level 139 mmol/L Potassium Level 4.3 mmol/L Chloride Level 104 mmol/L Carbon Dioxide Level 29 mmol/L Anion Gap 6.0 mmol/L Blood Urea Nitrogen 32 mg/dl Creatinine 1.70 mg/dl Est Creatinine Clear Calc Drug Dose 38.0 ml/min Estimated GFR () 45.7 Estimated GFR (Non- 39.4 BUN/Creatinine Ratio 18.6 Random Glucose 92 mg/dl Calcium Level 8.3 mg/dl Magnesium Level 2.4 mg/dl Echocardiogram reviewed, dated 04/24/16 at : The examination is adequate to evaluate the referral indication. The left ventricular cavity size is mildly enlarged. The LV wall thickness is normal. The septum and inferior wall are akinetic with all other wall segments severely hypokinetic a pattern consistent with an ischemic cardiomyopathy The qualitative LV ejection fraction is 25-29% (severely reduced). The left atrium is severely enlarged (>48 ml/m^2,). Moderate aortic valve sclerosis is present. Mild aortic valve regurgitation is present. The mitral valve annulus is moderately dilated. Severe mitral regurgitation is present. Moderate tricuspid regurgitation is present. Mild pulmonary hypertension is present. IMPRESSION: 1. Syncope - multifactorial, possible orthostatic hypotension, difficult to r/o arrhythmogenic. 2. New atrial flutter with controlled rate and frequent ectopy on admission EKG 3. Ischemic cardiomyopathy with LVEF 25-30%, declining over the last 6 months 4. History of LBBB and frequent PVC's 5. CAD s/p remote CABG x3 in 1995, receiving a NYE graft to LAD and 2 saphenous vein grafts with poor surgical targets defined at the time surgery. 6. Persistent nausea with multiple medication changes 7. Recent issues with Acute on chronic CHF exacerbations, with associated 20 lb weight gain requiring titration of outpatient diuretics 8. LUDWIN - recently started on CPAP 9. thrombocytopenia 10. Liver cirrhosis with elevated LFTs 11. Acute on chronic Kidney disease PLAN: Stop IV fluids this AM given evidence of mild volume overload on exam. Will continue to hold diuretics for now with close monitoring. JERONIMO rene ordered Hold lisinopril and diuretics for now. Monitor renal function. Continue metoprolol tartrate 50 mg in AM and 25 mg PM for rate/rhythm control. Anticoagulation contraindicated given facial hematoma/head injury and thrombocytopenia. Need to consider proceeding with BiV ICD possibly this admission as there is a possibility this was arrhythmogenic syncope due to severe LV dysfunction. Case discussed in detail with Dr. Virgen in detail. Will follow closely. (An Hanson PA-C) CARDIOLOGY ATTENDING ADDENDUM: The patient was seen and personally examined. Agree with An Hanson PA-C's findings and plans as documented above with additions as noted below. Subjective patient feeling well at rest at the present time. He has ecchymosis surrounding his right orbit and right chin having had head/facial trauma with his fall. Fortunately his CT of the brain is negative for acute trauma. He notes sensation of mild abdominal distention. Examination: Last Vital Signs Documentation Date Time Temp Pulse Resp B/P Pulse Ox O2 Delivery O2 Flow Rate FiO2 06/06/16 12:00 Room Air 06/06/16 11:19 36.4 75 16 123/77 97 Cardiovascular irregular rhythm, no murmurs Extremities: No edema Abdomen: Mildly distended and soft nontender Impression: 70-year-old male with progressive chronic systolic heart failure, LVEF 25% on echocardiogram performed April 2016 at [facility] in the setting of left bundle branch block and nonischemic cardiomyopathy. He underwent coronary artery bypass grafting just over 20 years ago at the age of 49. EKG this admission reveals findings of newly recognized atrial flutter with controlled ventricular rate in addition to his chronic left bundle branch block and frequent PVCs. Discussion/recommendation: Positive atrial flutter may very well explain his recent decline in activity tolerance. However at the present time he is not a candidate for anticoagulation given his thrombocytopenia and recent facial trauma. Therefore he is not a candidate for antiarrhythmic therapy. Is difficult to determine what the cause of his fall yesterday was. He has chronic dizziness and perhaps he missed the curb due to his dizziness and simply had a traumatic fall. Orthostatic hypotension is a possibility, and of course he is at risk for ventricular arrhythmias given his ischemic cardiomyopathy. He has had difficulty tolerating medications and therefore is not an ideal medication therapy, but he is recently been on perhaps as much medication as what he will tolerate with no improvement in his activity tolerance or LV systolic function with a trial of conservative therapy. At this time, will continue to observe him OFF of IV fluids, and OFF of diuretics, with likely resume his prior to arrival to torsemide dose tomorrow depending upon his blood pressure and kidney function. At present, he is not a candidate for invasive EP procedure and needs to be optimized. He may benefit from wearing a Zoll life vest as outpatient while pending outpatient EP evaluation. (Dieudonne Virgen,Karolina.O.)
[2016-06-06] MEDS ORDERED: NURSING VERBAL MED ORDER ONE (17:00)
--- NOTE | 2016-06-06 20:07 | Progress Note ---
Medicine Progress Note Date & Time of Visit: Jun 06, 2016 at 19:51. Subjective Pt was seen and examined Lying in bed with no distress with family at bedside Pt said that he feels much better today he said that his breathing improved denies any chest pain, palpitation and dizziness Objective Last 8 Hrs Date Time Temp Pulse Resp B/P Pulse Ox O2 Delivery O2 Flow Rate FiO2 06/06/16 19:38 36.4 93 18 133/83 96 Room Air 06/06/16 15:56 Room Air 06/06/16 15:19 74 18 98/69 96 Room Air 06/06/16 12:00 Room Air Physical Exam: General- No acute distress Head- atraumatic Eyes- ecchymosis right orbital area ENT- oropharynx clear Neck- supple, no JVD Lungs- clear to auscultation, No wheezing Heart- regular rhythm; no murmur Abdomen- normal bowel sounds, soft Extremities- no calf tenderness Neuro- alert, oriented x 3; PERRL, EOMI Skin- warm & dry Laboratory Results: Last 24 Hours Test 06/05/16 23:15 06/06/16 07:10 Total Creatine Kinase 86 U/L Creatine Kinase MB 2.5 ng/ml Creatine Kinase MB Ratio 2.9 Troponin I 0.066 ng/ml White Blood Count 4.38 K/uL Red Blood Count 4.24 M/uL Hemoglobin 12.7 g/dL Hematocrit 37.2 % Mean Corpuscular Volume 87.7 fL Mean Corpuscular Hemoglobin 30.0 pg Mean Corpuscular Hemoglobin Concent 34.1 g/dl RDW Standard Deviation 64.1 fL RDW Coefficient of Variation 20.2 % Platelet Count 64 K/uL Mean Platelet Volume 11.0 fL Sodium Level 139 mmol/L Potassium Level 4.3 mmol/L Chloride Level 104 mmol/L Carbon Dioxide Level 29 mmol/L Anion Gap 6.0 mmol/L Blood Urea Nitrogen 32 mg/dl Creatinine 1.70 mg/dl Est Creatinine Clear Calc Drug Dose 38.0 ml/min Estimated GFR () 45.7 Estimated GFR (Non- 39.4 BUN/Creatinine Ratio 18.6 Random Glucose 92 mg/dl Calcium Level 8.3 mg/dl Magnesium Level 2.4 mg/dl Assessment & Plan SYNCOPE Possible orthostasis, r/o arrhythmia, r/o PE Torsemide recently increased as outpatient, having dizziness with standing, BUN / Cr elevated CT head negative for acute intracranial abnormality stable ISCHEMIC CARDIOMYOPATHY EF 25-29% in Apr 2016 hold diuretic for now due to MARIANELA Troponin slightly elevated denies any chest pain cardio on board Elevated troponin Possible related to MARIANELA asymptomatic EKG did not showed any significant changes No anticoagulant due to right orbital hematoma and thrombocytopenia continue monitor in tele MARIANELA Creat is 2.0; was 1.8 on 05/28 -> 1.5 on 06/02 Likely due to increased torsemide as outpatient creatine today 1.7 continue holding diuretic IVF D/C Monitor BMP THROMBOCYTOPENIA Platelets 64 Hold aspirin for now Denies bleeding Monitor CBC CAD S/P CABG Hold aspirin for thrombocytopenia; hold PETE-I for MARIANELA Continue beta kayla and statin HYPERTENSION BP is stable Lisinopril held for MARIANELA Continue metoprolol and terazosin LUDWIN Continue CPAP GERD Continue ranitidine CODE STATUS Full code DVT PROPHYLAXIS SCD's due to thrombocytopenia/ right orbital hematoma Consultants: cardio Current Inpatient Medications: Current Inpatient Medications Medications (Trade) Dose Ordered Sig/Mojgan Route Start Time Stop Time Status Last Admin Dose Admin Acetaminophen (Tylenol Tab) 650 mg Q4H PRN PO 06/05/16 14:45 07/05/16 14:44 06/06/16 03:42 650 MG Ondansetron HCl (Zofran Inj) 4 mg Q6H PRN IV 06/05/16 14:45 07/05/16 14:44 06/06/16 16:56 4 MG Nitroglycerin (Nitrostat Tab) 0.4 mg UD PRN SL 06/05/16 14:45 07/05/16 14:44 Miscellaneous (Iv Fluids Completed) 1 ea PRN PRN N/A 06/05/16 15:00 06/05/17 14:59 Clonazepam (Klonopin Tab) 0.5 mg HS PRN PO 06/05/16 15:15 07/05/16 15:14 Lorazepam (Ativan Tab) 0.5 mg BID PRN PO 06/05/16 15:15 07/05/16 15:14 Metoprolol Tartrate (Lopressor Tab) 25 mg QPM PO 06/05/16 21:00 07/05/16 20:59 06/05/16 21:38 25 MG Metoprolol Tartrate (Lopressor Tab) 50 mg QAM PO 06/06/16 09:00 07/06/16 08:59 06/06/16 10:30 50 MG Multivitamins (Multivitamin Tab) 1 tab DAILY PO 06/06/16 09:00 07/06/16 08:59 06/06/16 09:01 1 TAB Ranitidine HCl (zANTac TAB) 150 mg BID PO 06/05/16 21:00 07/05/16 20:59 06/06/16 09:02 150 MG Rosuvastatin Calcium (Crestor Tab) 40 mg HS PO 06/05/16 21:00 07/05/16 20:59 06/05/16 21:38 40 MG Terazosin HCl (Hytrin Cap) 5 mg HS PO 06/05/16 21:00 07/05/16 20:59 06/05/16 21:37 5 MG Tramadol HCl (Ultram Tab) 50 mg Q6H PRN PO 06/05/16 21:30 07/05/16 21:29 06/06/16 19:35 50 MG
[2016-06-06] MEDS: ROSUVASTATIN CALCIUM 20 MG TAB PO SCH (21:02)
[2016-06-06] MEDS: METOPROLOL TARTRATE 25 MG TAB PO SCH (21:03)
[2016-06-07] VITALS (8 sets, daily range): BP systolic 90–122; BP diastolic 66–79; PULSE 78–87; TEMP 36.3–36.4; O2SAT 92–95
[2016-06-07 06:59] LABS: MEAN CORPUSCULAR HGB CONC 33.5 g/dl (32-36)
[2016-06-07] MEDS: RANITIDINE HCL 150 MG TAB PO SCH (07:17)
[2016-06-07 07:32] LABS: HEMATOCRIT 39.4 % (42-52); MEAN CELL VOLUME 89.7 fL (80-100); MEAN CORPUSCULAR HEMOGLOBIN 30.1 pg (25-34); RED BLOOD COUNT 4.39 M/uL (4.7-6.1); WHITE BLOOD COUNT 4.59 K/uL (4.8-10.8)
[2016-06-07 07:36] LABS: BUN/CREATININE RATIO 18.5 (10-20); CALCIUM 8.7 mg/dl (8.5-10.1); CREATININE 1.5 mg/dl (0.60-1.40); POTASSIUM 4.4 mmol/L (3.5-5.1)
[2016-06-07 07:38] LABS: PLATELET COUNT 65 K/uL (130-400)
[2016-06-07] MEDS: METOPROLOL TARTRATE 50 MG TAB PO SCH (08:10)
[2016-06-07] MEDS: MULTIVITAMIN TAB PO SCH (08:10)
[2016-06-07] MEDS: ONDANSETRON INJ 2 MG/ML 2 ML VIAL IV PRN (12:10)
[2016-06-07] MEDS ORDERED: NURSING VERBAL MED ORDER ONE ×2 (12:15→13:45)
[2016-06-07] MEDS ORDERED: BISACODYL 10 MG SUPP ONE (12:18)
[2016-06-07] MEDS ORDERED: BISACODYL 10 MG SUPP PR ONE (12:30)
[2016-06-07] MEDS ORDERED: SOD PHOSPHATE/SOD BIPHOSPHATE ENEMA 132 ML BTL PR ONE (13:45)
[2016-06-07] MEDS: TRAMADOL HCL 50 MG TAB PO PRN (14:36)
--- NOTE | 2016-06-07 14:47 | Progress Note ---
Medicine Progress Note Date & Time of Visit: Jun 07, 2016 at 14:06. Subjective Pt was seen and examined Sitting in bed with family member at bedside Pt said that he feels fine He said that he walk in the hallway with no distress he said that he does not feel any dizzy He said that he has not had a bowel movement yet Pt is very anxious to go home since yesterday denies any chest pain, palpitation, dizziness and sob Objective Last 8 Hrs Date Time Temp Pulse Resp B/P Pulse Ox O2 Delivery O2 Flow Rate FiO2 06/07/16 11:55 94 Room Air 06/07/16 11:42 84 18 119/78 94 Room Air 06/07/16 08:00 94 Room Air 06/07/16 07:29 36.3 83 18 122/78 94 Room Air Physical Exam: General- No acute distress Head- atraumatic Eyes- ecchymosis right orbital area ENT- oropharynx clear Neck- supple, no JVD Lungs- clear to auscultation, No wheezing Heart- regular rhythm; no murmur Abdomen- normal bowel sounds, soft Extremities- no calf tenderness Neuro- alert, oriented x 3; PERRL, EOMI Skin- warm & dry Laboratory Results: Last 24 Hours Test 06/07/16 06:34 White Blood Count 4.59 K/uL Red Blood Count 4.39 M/uL Hemoglobin 13.2 g/dL Hematocrit 39.4 % Mean Corpuscular Volume 89.7 fL Mean Corpuscular Hemoglobin 30.1 pg Mean Corpuscular Hemoglobin Concent 33.5 g/dl RDW Standard Deviation 66.3 fL RDW Coefficient of Variation 20.3 % Platelet Count 65 K/uL Sodium Level 137 mmol/L Potassium Level 4.4 mmol/L Chloride Level 103 mmol/L Carbon Dioxide Level 26 mmol/L Anion Gap 8.0 mmol/L Blood Urea Nitrogen 28 mg/dl Creatinine 1.50 mg/dl Est Creatinine Clear Calc Drug Dose 43.1 ml/min Estimated GFR () 53.1 Estimated GFR (Non- 45.9 BUN/Creatinine Ratio 18.5 Random Glucose 77 mg/dl Calcium Level 8.7 mg/dl Assessment & Plan SYNCOPE Possible orthostasis, r/o arrhythmia, r/o PE Torsemide recently increased as outpatient, having dizziness with standing, BUN / Cr elevated CT head negative for acute intracranial abnormality stable ISCHEMIC CARDIOMYOPATHY EF 25-29% in Apr 2016 hold diuretic for now due to MARIANELA denies any chest pain Continue wearing LifeVest until seeing cardiology Case discussed with cardio that recommended to restart torsemide 10mg daily on Thursday Follow up with the heart failure clinic on June 11 at 7:45 am with An ROGEL cardio on board Elevated troponin Possible related to MARIANELA asymptomatic EKG did not showed any significant ST changes No anticoagulant due to right orbital hematoma and thrombocytopenia continue monitor in tele MARIANELA Creat is 2.0; was 1.8 on 05/28 -> 1.5 on 06/02 Likely due to increased torsemide as outpatient creatine today 1.5 continue holding diuretic Resume diuretic on Thursday IVF Was D/C Monitor Creatine THROMBOCYTOPENIA Platelets 65 Hold aspirin for now Denies bleeding Monitor CBC CAD S/P CABG Hold aspirin for thrombocytopenia; hold PETE-I for MARIANELA Continue beta kayla and statin HYPERTENSION BP is stable Lisinopril held for MARINAELA Hold lisinopril until seeing Cardiology Continue metoprolol and terazosin LUDWIN Continue CPAP GERD Continue ranitidine CODE STATUS Full code DVT PROPHYLAXIS SCD's due to thrombocytopenia/ right orbital hematoma Disposition Will discharge home today Follow up with the heart failure clinic on June 11 at 7:45 am with An ROGEL Follow up with PCP Dr. Rader on June 10 at 2PM Monitor Creatine Discharge planning: home Consultants: cardio Current Inpatient Medications: Current Inpatient Medications Medications (Trade) Dose Ordered Sig/Mojgan Route Start Time Stop Time Status Last Admin Dose Admin Acetaminophen (Tylenol Tab) 650 mg Q4H PRN PO 06/05/16 14:45 07/05/16 14:44 06/06/16 03:42 650 MG Ondansetron HCl (Zofran Inj) 4 mg Q6H PRN IV 06/05/16 14:45 07/05/16 14:44 06/07/16 12:10 4 MG Nitroglycerin (Nitrostat Tab) 0.4 mg UD PRN SL 06/05/16 14:45 07/05/16 14:44 Miscellaneous (Iv Fluids Completed) 1 ea PRN PRN N/A 06/05/16 15:00 06/05/17 14:59 Clonazepam (Klonopin Tab) 0.5 mg HS PRN PO 06/05/16 15:15 07/05/16 15:14 Lorazepam (Ativan Tab) 0.5 mg BID PRN PO 06/05/16 15:15 07/05/16 15:14 Metoprolol Tartrate (Lopressor Tab) 25 mg QPM PO 06/05/16 21:00 07/05/16 20:59 06/06/16 21:03 25 MG Metoprolol Tartrate (Lopressor Tab) 50 mg QAM PO 06/06/16 09:00 07/06/16 08:59 06/07/16 08:10 50 MG Multivitamins (Multivitamin Tab) 1 tab DAILY PO 06/06/16 09:00 07/06/16 08:59 06/07/16 08:10 1 TAB Ranitidine HCl (zANTac TAB) 150 mg BID PO 06/05/16 21:00 07/05/16 20:59 06/07/16 07:17 150 MG Rosuvastatin Calcium (Crestor Tab) 40 mg HS PO 06/05/16 21:00 07/05/16 20:59 06/06/16 21:02 40 MG Terazosin HCl (Hytrin Cap) 5 mg HS PO 06/05/16 21:00 07/05/16 20:59 06/06/16 21:03 5 MG Tramadol HCl (Ultram Tab) 50 mg Q6H PRN PO 06/05/16 21:30 07/05/16 21:29 06/06/16 19:35 50 MG
[2016-06-07] MEDS ORDERED: TORS10TA14 PO (14:51)
--- NOTE | 2016-06-07 15:00 | Discharge Instructions ---
Discharge Instructions Date of Service Jun 07, 2016. Admission Reason for Admission: Syncope Discharge Discharge Diagnosis / Problem: Acute Kidney failure, ISCHEMIC CARDIOMYOPATHY, HTN, Thrombocytopenia Discharge Goals Goal(s): Decrease discomfort, Improve function, Improve disease control Activity Recommendations Activity Limitations: resume your previous activity as tolerated . Instructions / Follow-Up Instructions / Follow-Up Discharge home today Follow up with the heart failure clinic on June 11 @ 7:45 am with An ROGEL Follow up with Primary care physician Dr. Rader on June 10 @ 2PM Monitor BMP Torsemide change to 10mg daily (Start on Thursday) Hold lisinopril until your physician recommends to resume it. Hold Aspirin for now due to the right orbital hematoma NO NSAIDs for now such as (motrin, aleve, ibuprofen, naproxen, meloxicam) Current Hospital Diet Patient's current hospital diet: AHA Diet (Heart Healthy) Discharge Diet Recommended Diet: AHA Diet (Heart Healthy), Low Sodium Diet (2gm Na) Pending Studies Studies pending at discharge: no Medical Emergencies . Who to Call and When: Medical Emergencies: If at any time you feel your situation is an emergency, please call 911 immediately. . Non-Emergent Contact Non-Emergency issues call your: Primary Care Provider Call Non-Emergent contact if: you have any medication questions . . "Provider Documentation" section prepared by Lakia Duggan. VTE Core Measure Inpt VTE Proph given/why not?: SCD's
--- NOTE | 2016-06-07 15:13 | CARDIOLOGY PROGRESS NOTE ---
DATE: 06/07/2016 DATE: 06/07/2016. SUBJECTIVE: The patient is a 70-year-old male admitted with syncope, diagnosed with new onset atrial flutter with controlled ventricular response. The patient was also noted to be volume depleted/dehydrated due to diuretic therapy. His diuretics have been held since admission. His creatinine has trended downward. Denies any recurrent dizziness. No tachycardic dysrhythmias on telemetry which demonstrates rate controlled atrial flutter. He was not placed on anticoagulation due to fall risk, and thrombocytopenia. The patient is currently resting comfortably. Anxious to return home if possible. REVIEW OF SYSTEMS: The pertinent positives noted above and a 4-system review including cardiovascular, pulmonary, gastroenterology, and neurologic systems otherwise negative. LABORATORY DATA: Troponin 0.066. Sodium 137, potassium 4.4, chloride 103, CO2 is 26, BUN is 28, creatinine is 1.50. White blood cell count 4.59, hemoglobin is 13.2, platelet count is 65,000. PHYSICAL EXAMINATION: VITAL SIGNS: Temperature is 36.3 degrees centigrade, pulse 84 beats per minute and regular, respiratory rate is 18 breaths per minute, blood pressure 119/78. SAO2 is 94% on room air. GENERAL: NAD, diffuse periorbital ecchymosis, right periorbital laceration with sutures. NECK: Supple without JVD or HJR. Carotid upstrokes are brisk. HEART: Irregular with a normal S1 and S2. No murmur or gallop appreciated. LUNGS: Clear to auscultation bilaterally. No rales, rhonchi or wheeze. ABDOMEN: Soft, nontender. No rebound or guarding. EXTREMITIES: Warm and dry with trace pedal edema. Radial pulses are 2/4 bilaterally. Posterior tibial pulses are 2/4. NEUROLOGIC EXAMINATION: Demonstrates no focal motor deficit. PSYCHIATRIC: Demonstrates normal affect and mood. FINAL IMPRESSION: 1. A 70-year-old male with chronic systolic heart failure, presents with a syncopal episode with unclear etiology. Consideration is for orthostatic hypotension in the setting of volume depletion versus arrhythmogenic source in the setting of known ischemic cardiomyopathy considered. The patient has been fitted with a LifeVest. Diuretics have been held with subsequent improvement in creatinine. 2. Paroxysmal atrial flutter with controlled ventricular response -- this is a new finding. Anticoagulation has not been initiated due to fall, and thrombocytopenia. 3. Ischemic cardiomyopathy. 4. Chronic left bundle branch block with frequent premature ventricular contractions. 5. History of coronary disease with remote coronary artery bypass graft in 1995. 6. History of cirrhosis with elevated LFTs. 7. Acute on chronic kidney disease secondary to dehydration. PLAN AND RECOMMENDATIONS: I have instructed the patient to hold his torsemide again tomorrow. He will resume at a lower dose, 10 mg daily on Thursday. He has been fitted for a LifeVest. He will follow closely with heart failure clinic next week. Lisinopril will remain on hold until followup in the [facility] clinic as well. A repeat basic metabolic panel should be performed during that visit. Ultimate plans for electrophysiology consultation and consideration for ICD implantation in the near future. The patient will be discharged to home today. Thank you for allowing me to take part in the care of your patient.
[2016-06-07] MEDS ORDERED: TRAM-10 PO (16:24)
--- NOTE | 2016-06-08 18:36 | Discharge Summary ---
Discharge Summary Date of Service Jun 08, 2016. Discharge Summary Admission Date: Jun 05, 2016 at 14:49 Discharge Date: Jun 07, 2016 Discharge Disposition: Home Principal Diagnosis: Syncope Secondary Diagnoses/Problems: Acute Kidney failure ISCHEMIC CARDIOMYOPATHY HTN Thrombocytopenia Elevated troponin Hypertension LUDWIN CAD S/P CABG Procedures: CERVICAL SPINE CT CT DOSE: 1002.12 mGy.cm HISTORY: Trauma. Pain. fall TECHNIQUE: Multiaxial CT images of the cervical spine were performed and reformatted in the sagittal and coronal plane without the use of contrast. COMPARISON: None. FINDINGS: No fractures. No subluxation. Prevertebral soft tissues and the C1-C2 interval are intact. No pneumothorax. Degenerative disc changes noted throughout. Reversal of the normal cervical curvature IMPRESSION: Degenerative change. Muscular spasm. No acute bony abnormality. Electronically signed by: Maco Bah M.D. 06/05/2016 12:12 PM Dictated Date/Time: 06/05/2016 12:09 PM NUCLEAR MEDICINE PERFUSION SCAN CLINICAL HISTORY: Syncope. Elevated d-dimer. COMPARISON STUDY: Ventilation imaging could not be performed in this patient due to lacerations to the lips and nose. Therefore, only perfusion imaging was performed. 6 mCi of low particle technetium 99m MAA was injected IV at 8:45 PM on June 06, 2015. Immediately following injection, imaging of the chest was performed in the typical projections. FINDINGS: This exam is compromised by the lack of ventilation imaging. No segmental defects are identified on this examination. IMPRESSION: Exam compromised given the lack of ventilation imaging but study is likely low probability for pulmonary embolus. Electronically signed by: Joni Rendon M.D. 06/05/2016 9:25 PM Dictated Date/Time: 06/05/2016 9:23 PM [~ rep ct add3]] HEAD CT NONCONTRAST CT DOSE: HISTORY: Mental status change EVALUATE WEAKNESS TECHNIQUE: Multiaxial CT images of the head were performed without the use of intravenous contrast. Comparison: None. Findings: The paranasal sinuses and mastoid air cells are clear. The calvarium and skull base are intact. The ventricles and sulci are within normal limits. There is no mass, hematoma, midline shift, or acute infarct. Impression: No acute intracranial abnormality. Electronically signed by: Maco Bah M.D. 06/05/2016 12:09 PM Dictated Date/Time: 06/05/2016 12:[address] SCAN OF THE FACIAL BONES WITHOUT IV CONTRAST CLINICAL HISTORY: Fall. COMPARISON STUDY: CT of the brain performed concurrently on 06/05/2016. TECHNIQUE: High-resolution CT scan of the facial bones is performed. Images are reviewed in the axial, sagittal, and coronal planes. IV contrast was not administered for this examination. FINDINGS: The skeletal structures are osteopenic. There is no evidence of facial bone fracture. The bony orbits are intact and the orbital contents are within normal limits. The zygomatic arches, nasal bones, and pterygoid plates are preserved. The maxilla and mandible are intact. There are no layering blood products within the paranasal sinuses. The sinuses and mastoids are clear. The visualized calvarium and upper cervical spine are maintained. Cervical spondylosis is partially imaged. Partially imaged brain parenchyma is within normal limits. There is right periorbital and premalar soft tissue contusion/hematoma. Calcified tonsilliths are observed. There are shotty cervical lymph nodes atherosclerotic calcification is noted in the carotid bulbs. IMPRESSION: 1. There is no evidence of facial bone fracture. 2. Right facial soft tissue contusion/hematoma. Electronically signed by: Adan Tejeda M.D. 06/05/2016 12:22 PM Dictated Date/Time: 06/05/2016 12:19 PM Consultations: cardio Medication Reconciliation New Medications: Tramadol (Ultram) 50 Mg Tab 50 MG PO Q12 PRN for Pain for 5 Days, #10 TAB Changed Medications: Torsemide (Demadex) 10 Mg Tab 10 MG PO DAILY for 30 Days, #30 TAB (Changed from: UD; Take 20 mg by mouth in AM and 10 mg by mouth in afternoon.) Start on Thursday morning Continued Medications: Acetaminophen (Acetaminophen) 500 Mg Tab 2 TAB PO HS PRN for Pain for 30 Days, TAB 1 Refill Clonazepam (Klonopin) 0.5 Mg Tab 1-2 TABS PO HS PRN for Insomnia Lorazepam (Lorazepam) 0.5 Mg Tab 1 TAB PO BID PRN for Anxiety for 30 Days, #60 TAB Magnesium Oxide (Mag-Ox) 400 Mg Tab 400 MG PO DAILY, TAB Metoprolol Tartrate (Lopressor) (Lopressor) 50 Mg Tab 50 MG PO QAM Metoprolol Tartrate (Lopressor) (Lopressor) 50 Mg Tab 25 MG PO QPM Multiple Vitamin (Multivitamin) 1 Tab Tab 1 TAB PO DAILY, TAB Nitroglycerin (Nitrostat) 0.4 Mg/1 Tab Subl 1 TAB PO UD PRN for Chest Pain Rhame-3 Fatty Acids (Rhame 3) 1 Cap Cap 2 CAP PO DAILY Ranitidine (Zantac) 150 Mg Tab 150 MG PO BID, TAB Rosuvastatin Calcium (Crestor) 40 Mg Tab 40 MG PO HS, TAB Terazosin (Hytrin) 5 Mg Cap 5 MG PO HS Discontinued Medications: Aspirin (Aspirin 81) 81 Mg Tab 81 MG PO DAILY Lisinopril (Lisinopril) 20 Mg Tab 20 MG PO HS Admission Information HPI (per Admitting provider): This is a 70 year old male with PMH of ischemic cardiomyopathy, EF 25-29% in 2016, LBBB, frequent PVC's, CAD s/p CABG, HTN, LUDWIN on CPAP, and other problems listed below who presents to the ED with syncope. Patient was recently seen in clinic by An Hanson PA-C on 05/28/16 was noted to be in acute decompensated HF with volume overload and torsemide dose was increased to 20 mg qam. Then yesterday patient was instructed to increase to 20 mg qam and 10 mg in afternoon. Yesterday and today felt dizzy described as spinning sensation while standing. This has happened intermittently in the past attributed to BP medication. Today did not take torsemide and did not eat breakfast. He was feeling tired today, then while walking in parking lot, possibly felt dizzy beforehand, then had syncopal episode. He was found by a passerby who called 911. Patient awoke when EMS had already arrived. Unclear how long he was down. No reported seizure activity. Was oriented when he awoke. He sustained facial lacerations which were sutured in the ER. Has soreness right rib area. No other injury. He reported having 3/10 central non-radiating chest burning while in the ER attributed to indigestion which resolved when he drank water. He reports similar discomfort in the past which resolved with Tums. Has ongoing intermittent nausea and decreased appetite for months. Patient notes increased CRESPO x 1 week. Noticed bilateral LE edema yesterday evening. Weight is up approx 2 kg from cardiology visit on 05/28/16. Has increased dry cough past few days with postnasal drip. He denies fever, chills, diaphoresis, CARRILLO, vision change, weakness, numbness, dyspnea at rest, orthopnea, palpitations, vomiting, diarrhea , calf pain. No hx of VTE. Denies hx of abnormal bleeding. 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) Head: normocephalic, + evidence of trama Eyes: normal inspection, PERRL, EOMI ENT: hearing grossly normal, pharynx normal, + pertinent finding (dry oral mucosa) Neck: supple, no JVD, trachea midline Respiratory/Chest: lungs clear, normal breath sounds, no respiratory distress, no accessory muscle use Cardiovascular: regular rate, rhythm, no murmur Abdomen/GI: normal bowel sounds, non tender, soft Extremities/Musculoskelatal: no calf tenderness, no pedal edema Neurologic/Psych: alert, normal mood/affect, oriented x 3, + pertinent finding (grossly nonfocal) Skin: warm/dry, + pertinent finding (ecchymosis and sutured laceration right periorbital area, repaired laceration on upper lip) Hospital Course SYNCOPE Possible orthostasis, r/o arrhythmia, r/o PE Torsemide recently increased as outpatient, having dizziness with standing, BUN / Cr elevated CT head negative for acute intracranial abnormality stable ISCHEMIC CARDIOMYOPATHY EF 25-29% in Apr 2016 hold diuretic for now due to MARIANELA denies any chest pain Continue wearing LifeVest until seeing cardiology Case discussed with cardio that recommended to restart torsemide 10mg daily on Thursday Follow up with the heart failure clinic on June 11 at 7:45 am with An ROGEL cardio on board Elevated troponin Possible related to MARIANELA asymptomatic EKG did not showed any significant ST changes No anticoagulant due to right orbital hematoma and thrombocytopenia continue monitor in tele MARIANELA Creat is 2.0; was 1.8 on 05/28 -> 1.5 on 06/02 Likely due to increased torsemide as outpatient creatine today 1.5 continue holding diuretic Resume diuretic on Thursday IVF Was D/C Monitor Creatine THROMBOCYTOPENIA Platelets 65 Hold aspirin for now Denies bleeding Monitor CBC CAD S/P CABG Hold aspirin for thrombocytopenia; hold PETE-I for MARIANELA Continue beta kayla and statin HYPERTENSION BP is stable Lisinopril held for MARIANELA Hold lisinopril until seeing Cardiology Continue metoprolol and terazosin LUDWIN Continue CPAP GERD Continue ranitidine CODE STATUS Full code DVT PROPHYLAXIS SCD's due to thrombocytopenia/ right orbital hematoma Disposition Will discharge home today Follow up with the heart failure clinic on June 11 at 7:45 am with An ROGEL Follow up with PCP Dr. Rader on June 10 at 2PM Monitor Creatine Total time spent on discharge = 35 minutes This includes examination of the patient, discharge planning, medication reconciliation, and communication with other providers. Discharge Instructions Discharge Instructions Date of Service Jun 07, 2016. Admission Reason for Admission: Syncope Discharge Discharge Diagnosis / Problem: Acute Kidney failure, ISCHEMIC CARDIOMYOPATHY, HTN, Thrombocytopenia Discharge Goals Goal(s): Decrease discomfort, Improve function, Improve disease control Activity Recommendations Activity Limitations: resume your previous activity as tolerated . Instructions / Follow-Up Instructions / Follow-Up Discharge home today Follow up with the heart failure clinic on June 11 @ 7:45 am with An ROGEL Follow up with Primary care physician Dr. Rader on June 10 @ 2PM Monitor BMP Torsemide change to 10mg daily (Start on Thursday) Hold lisinopril until your physician recommends to resume it. Hold Aspirin for now due to the right orbital hematoma NO NSAIDs for now such as (motrin, aleve, ibuprofen, naproxen, meloxicam) Current Hospital Diet Patient's current hospital diet: AHA Diet (Heart Healthy) Discharge Diet Recommended Diet: AHA Diet (Heart Healthy), Low Sodium Diet (2gm Na) Pending Studies Studies pending at discharge: no Medical Emergencies . Who to Call and When: Medical Emergencies: If at any time you feel your situation is an emergency, please call 911 immediately. . Non-Emergent Contact Non-Emergency issues call your: Primary Care Provider Call Non-Emergent contact if: you have any medication questions . . "Provider Documentation" section prepared by Lakia Duggan. VTE Core Measure Inpt VTE Proph given/why not?: SCD's Additional Copies To Jose Rader III, M.D.
== END 2016-06-07 16:34 | disposition home or self-care (01) | DRG 683 ==
LOC: ENRESERVTM → ENRESERVDT → EDBD 11:01 → C.EDC 11:03 → C.EDINP 14:49 → EDBEDREQ 15:05 → C.MED 22:07
PROVIDERS: ADMIT Internal Medicine; ATTEND Internal Medicine
PROC: 0HQ1XZZ Repair Face Skin, External Approach (ICD-10-PCS; principal; 2016-06-05)
DX: N17.9 Acute kidney failure, unspecified (principal); I48.92 Unspecified atrial flutter; I13.0 Hypertensive heart and chronic kidney disease with heart failure and stage 1 through stage 4 chronic kidney disease, or unspecified chronic kidney disease; I50.22 Chronic systolic (congestive) heart failure; T50.1X5A Adverse effect of loop [high-ceiling] diuretics, initial encounter; R55 Syncope and collapse; S01.511A Laceration without foreign body of lip, initial encounter; S01.411A Laceration without foreign body of right cheek and temporomandibular area, initial encounter; W19.XXXA Unspecified fall, initial encounter; Y92.481 Parking lot as the place of occurrence of the external cause; D69.6 Thrombocytopenia, unspecified; R77.8 Other specified abnormalities of plasma proteins; E86.0 Dehydration; R11.0 Nausea; I49.3 Ventricular premature depolarization; I25.5 Ischemic cardiomyopathy; I44.7 Left bundle-branch block, unspecified; N18.9 Chronic kidney disease, unspecified; I25.10 Atherosclerotic heart disease of native coronary artery without angina pectoris; K21.9 Gastro-esophageal reflux disease without esophagitis; E78.5 Hyperlipidemia, unspecified; K74.60 Unspecified cirrhosis of liver; K76.0 Fatty (change of) liver, not elsewhere classified; M19.90 Unspecified osteoarthritis, unspecified site; L40.50 Arthropathic psoriasis, unspecified; G47.33 Obstructive sleep apnea (adult) (pediatric); Z95.1 Presence of aortocoronary bypass graft; Z99.89 Dependence on other enabling machines and devices; Z87.891 Personal history of nicotine dependence; Z79.82 Long term (current) use of aspirin; Z79.899 Other long term (current) drug therapy

== ENCOUNTER → 2016-06-26 | Day surgery (SDC) | payer OTHER ==
[~2016-06-26] VITALS: Ht 172.7 cm; Wt 73.0 kg
[~2016-06-26] MED LIST changes: +ACET500T57 PO; -ATV5 PO; +CLON0.5T3 PO; -ISOS30TA35 PO; +LORA0.5T12 PO; -LSN20 PO; -LSX20 PO; -METO25TA56 PO; +METO50TA16 PO; -METO50TA17 PO; +MULTTAB58 PO; +NTRGSL4 PO; +OMEG12006 PO; -TERA1CAP63 PO; +TERA5CAP PO; +TORS10TA14 PO; +ZNTT/150 PO
[2016-06-26 09:19] VITALS: Ht 172.7 cm; Wt 73.0 kg
[2016-06-26 09:30] LABS: HEMATOCRIT 39.9 % (42-52); MEAN CELL VOLUME 88.5 fL (80-100); MEAN CORPUSCULAR HEMOGLOBIN 30.2 pg (25-34); RED BLOOD COUNT 4.51 M/uL (4.7-6.1); WHITE BLOOD COUNT 4.47 K/uL (4.8-10.8)
[2016-06-26 09:47] LABS: BASO % 0.4 %; BASO ABS # 0.02 K/uL (0-0.2); COMPLETE YES; EOS % 10.3 %; LYMPH % 16.8 %; LYMPH ABS # 0.75 K/uL (1.2-3.4); MEAN CORPUSCULAR HGB CONC 34.1 g/dl (32-36); MEAN PLATELET VOLUME 11.1 fL (7.4-10.4); MONO % 14.8 %; NEUT % 57.7 %; PLATELET COUNT 66 K/uL (130-400)
[2016-06-26 09:48] LABS: INR 1.3 (0.9-1.1); PARTIAL THROMBOPLASTIN RATIO 1.1; PROTHROMBIN TIME (PATIENT) 13.9 SECONDS (9.0-12.0)
--- NOTE | 2016-06-26 12:25 | DIAGNOSTIC IMAGING REPORT ---
Limited abdominal ultrasound for ascites evaluation CLINICAL HISTORY: ascites COMPARISON STUDY: CT scan dated 07/21/2015 FINDINGS: The patient was referred for possible paracentesis. A four-quadrant survey of the abdomen was visualized. Only trace ascites was visualized. Fluid volume was felt to be inadequate for safe paracentesis. Incidental note is made of a lower pole left renal cyst. IMPRESSION: Only trace ascites was visualized. The patient's scheduled paracentesis was therefore not performed. Electronically signed by: Ari Vargas M.D. 06/26/2016 12:23 PM Dictated Date/Time: 06/26/2016 11:58 AM
== END | disposition home or self-care (01) ==
LOC: C.ACU 08:57
PROVIDERS: ATTEND Nurse Practitioner Family
DX: R18.8 Other ascites (principal); Z53.8 Procedure and treatment not carried out for other reasons; D69.6 Thrombocytopenia, unspecified

== ENCOUNTER → 2016-10-20 | Outpatient (CLI) | payer OTHER ==
--- NOTE | 2016-10-21 06:36 | PAP/PSG TECHNICIAN REPORT ---
[facility] [employer] Polysomnogram Report Study name: None Report date: 10/21/2016 Study date: 10/20/2016 Referring Physician: Misael Yang M.D. Name: JOY GATES Interpreting Physician: Carol Yang M.D. Date of : 1945 [employer]: Viki Berry [facility]. Sex: Male Age: 70 StudyType: PAP Nap Weight: 156 lbs Height: 70 years, Height 5' 8" BMI: 23.72 Medications: Ativan 0.5 mg, Demadex 10 mg, Zofran 4 mg, Lopressor 50 mg, Hytrin 5 mg, ZAntac 150 mg, Nitrostat 0.4 mg, Magox 400, Crestor 40 mg, Acetaminophen 500 mg, Multi Vitamins, Weidman 3 1000 mg Patient History 70 yr. old male here for an updated titration sleep study. Patients Auto CPAP is not correcting his apnea based on review of downloads. Parameters Monitored NPSG: E1-M2, E2-M1, Fp1-M2, Fp2-M1, F3-M2, F4-M2, F4-M1, C3-M2, C4-M2, C4-M1, O1-M2, O2-M2, O2-M1, T3-M2, T4-M1, P3-M2, P4-M1, CHIN1, CHIN2, HR, EKG, Legs, PFLOW, SNOR, FLOW, CFLOW, Tidal Volume, THOR, ABDO, SpO2, PLTH, CPRESS, ETCO2 Wave, ETCO2, pH Sleep Architecture Sleep Stages Time at Lights Off 9:57:13 PM STAGES Time (min.) TST (%) Time at Lights On 5:23:13 AM Wake 164.0 -- Total Recording Time (TRT) 447.00 min. N1 48.0 17 Total Sleep Period (TSP) 430.0 min. N2 139.0 49 Total Sleep Time (TST) 282.0min. N3 38.5 14 Awake Time 165.0 min. REM 56.5 20 Wake after Sleep Onset 149.5 min. Sleep Efficiency (SE) 63 % Sleep Onset Latency (ROCIO) 14.5 min. Number of Stage 1 Shifts None Awakenings 34 Stage Changes 113 Number of REM periods 7 REM 56.5 20 REM Latency 203.0 min. NREM 225.5 80 Body Position Analysis Supine Right Left Side Prone Vertical Total Sleep Time (min.) 80.4 198.9 47.0 245.87 0.0 0.3 Total Sleep Time (%) 13% 71% 17% 87 0% N/A% Total Sleep Time REM (min.) 0.0 56.5 0.0 None 0.0 0.0 Total Sleep Time NREM (min.) 36.1 142.4 47.0 None 0.0 0.0 Intermittent Wake (min.) 44.2 83.8 35.7 None 0.0 0.3 Total Sleep Period (%) 19% None None None None None Arousals Myoclonus (PLM) * Events Count Index Events Count Index Spontaneous 14 3 Events Awake (PLMW) 228 83.4 Respiratory 8 1.7 Events Asleep w/ Arousal (PLMA) 97 20.6 PLM 96 21 Events Asleep w/o Arousal (PLMS) 310 66.0 Snoring 13 3 Total Asleep 407 86.6 Total 131 28 Total 635 85 Respiratory Analysis * CA OA MA CH H RERA Total Count 16 0 0 0 19 0 35 Index 3.4 0.0 0.0 0 4.0 0 7.4 Mean Duration 17.2 0.0 0.0 0.00 29.2 0.0 23.7 Longest Duration 21.1 0.0 0.0 0.00 0.0 0.0 57.0 Respiratory Event Summary Total Supine ~Supine Right Left Prone REM NREM Apneas Count 16 12 4 4 0 N/A 2 14 Index 3.4 20 1 1.2 0.0 N/A 2 4 Hypopneas (4% Desat) Count 19 5 14 13 1 N/A 7 12 Index 4.0 8.3 3 3.9 1.3 N/A 7.4 3.2 Apneas & All Hypopneas Count 35 17 18 17 1 N/A 9 26 Index 7.4 28 4 5 1 N/A 9.6 6.9 Respiratory Events (Zinc Plater+All Hyp+RERA) Count 35 17 18 17 1 N/A 9 26 Index 7.4 28 4 5.1 1.3 N/A 9.6 6.9 Respiratory Related Arousal Count 8 17 2 2 0 N/A 0 8 Index 1.7 10 0 1 0 N/A 0 2 Snoring Analysis Supine Right Left Prone REM NREM Total Snore duration 15.2 min Snores count 33 176 87 N/A 68 228 296 Snore mean duration 3.1 Sec Snores index 55 53 111 N/A 72.2 60.7 63.0 TST with snoring (%) 5.4% Desaturation Event Summary: Minimum %SpO2 Event Count Mean/Min/Max Duration(sec.) Desaturation Index % Time In Bed > 90 42 27.8 / 13.5 / 55.3 6.0 95.2 86 - 90 1 13.8 / 13.8 / 13.8 2.8 4.8 81 - 85 0 N/A 0.0 0.0 76 - 80 0 N/A 0.0 0.0 71 - 75 0 N/A 0.0 0.0 66 - 70 0 N/A 0.0 0.0 61 - 65 0 N/A 0.0 0.0 56 - 60 0 N/A 0.0 0.0 51 - 55 0 N/A 0.0 0.0 < 50 0 N/A 0.0 0.0 Total REM NREM Awake <50% 0.0 min. 0.0 min. 0.0 min. 0.0 min. 51 - 60% 0.0 min. 0.0 min. 0.0 min. 0.0 min. 61 - 70% 0.0 min. 0.0 min. 0.0 min. 0.0 min. 71 - 80% 0.0 min. 0.0 min. 0.0 min. 0.0 min. 81 - 90% 21.1 min. 7.3 min. 9.5 min. 4.4 min. 91 - 100% 417.4 min. 49.2 min. 214.3 min. 153.9 min. Average 93 93 93 93 Minimum SpO2 87 88 87 88 Desaturation Event Index 5.7 7.4 6.9 3.3 # Desat. Events below 89% 10 1 9 0 Time(%) with Saturation below 89% 0.5 0.2 0.3 0.1 Time(min.) with Saturation below 89% 2.4 0.7 1.5 0.2 Time (mins) REM (mins) NREM (mins) % of TST SpO2 Below 90% 23 3 N20 2.5 SpO2 Below 88% 4 0 0 0 Heart Rate Analysis Min (bpm) Max (bpm) Average (bpm) Awake 49 127 60 NREM 47 127 58 REM 53 71 62 Overall 47 127 59 Supplemental O2 Values Minimum O2 level: None Value Start Time End Time [employer] Comments Mr. Gates slept in the right and supine positions. Cardiac arrhythmia and frequent PLMs noted. No bruxism noted. CPAP was initiated at +4 CMH2O room air and up-titrated to a level of + 8 CMH2O Cflex 1 , which nearly eliminated all respiratory events and snoring. A ResMed Mirage FX nasal mask, was used during titration. Mr. Gates awoke to use the restroom once during the night. Mr. Gates stated," I guess I slept". The final report will be interpreted and signed by a sleep physician. The completed physician report will then be placed in the patient medical record. Therapy Event: Therapy (cm H20) 4 5 6 7 8 Total Time at Pressure (min.) 228.9 58.3 46.6 97.6 14.4 TST at Pressure (min.) 124.6 41.3 13.6 94.1 8.4 # Periods 1 1 1 1 1 Sleep Onset (min.) 14.3 0.0 0.0 0.0 0.0 REM Onset (min.) 217.3 0.0 N/A 61.0 N/A Sleep Efficiency % 54 70 29 96 58 Wakefulness (%) 45.6 29.2 70.9 3.6 41.7 Wakefulness (min.) 104.3 17.0 33.0 3.5 6.0 NREM 1 (%) 11.6 11.1 5.4 8.7 27.8 NREM 1 (min.) 26.5 6.5 2.5 8.5 4.0 NREM 2 (%) 32.5 29.0 23.7 32.9 30.5 NREM 2 (min.) 74.5 16.9 11.1 32.1 4.4 NREM 3 (%) 5.2 0.0 0.0 27.1 0.0 NREM 3 (min.) 12.0 0.0 0.0 26.5 0.0 REM (%) 5.1 30.7 0.0 27.7 0.0 REM (min.) 11.6 17.9 0.0 27.0 0.0 # Arousals 71 16 13 22 9 Arousal Index 34.2 23.2 57.5 14.0 64.3 # Snore 127 79 23 48 19 Snore Index 61.2 114.8 101.8 30.6 135.8 AHI 1.9 14.5 48.7 4.5 21.4 AHI Supine 0.0 33.0 65.4 N/A N/A AHI Non-Supine 2.2 7.9 0.0 4.5 21.4 NREM AHI 1.1 23.1 48.7 0.9 21.4 REM AHI 10.3 3.4 N/A 13.3 N/A RDI 1.9 14.5 48.7 4.5 21.4 # Obstructive 0 0 0 0 0 # Central Ap 0 7 6 2 1 # Mixed 0 0 0 0 0 # Hypopneas 4 3 5 5 2 RERAS 0 0 0 0 0 Total Respiratory Events 4 10 11 7 3 Time Below SpO2 89.00% (min.) 1.0 0.7 0.4 0.1 0.0 Mean NREM SpO2 (%) 93 92 92 94 94 Mean REM SpO2 (%) 91 94 N/A 93 N/A Mean Sleep SpO2 (%) 93 93 92 93 94 Min NREM SpO2 (%) 87 87 87 90 91 Min REM SpO2 (%) 88 90 N/A 88 N/A Position Supine (min.) 15.1 10.9 10.1 0.0 0.0 Position Non-supine (min.) 109.5 30.4 3.5 94.1 8.4 LM Index Sleep 100.2 88.6 106.2 67.6 57.2 LM Index NREM 106.2 112.8 106.2 88.5 57.2 LM Index REM 41.4 57.0 N/A 15.6 N/A Mean Heart Rate (bpm) 59 60 55 58 59 Min Heart Rate (bpm) 52 47 51 51 55
--- NOTE | 2016-10-28 14:06 | POLYSOMNOGRAPH REPORT ---
REFERRING PERSON: Dr. Jermaine Yang. WET PRIMER POWDER BLENDER: Viki Berry. Mr. Gates is a 70-year-old male sent for a CPAP titration study. He has been on auto titrating CPAP at home, but this has not been correcting his apnea after reviewing downloads. He is sent to the lab to determine his pressure needs. His [place] sleepiness scale score on the evening of this study is not recorded. BMI is 23.72. Following the technical and digital specifications of the [place] [employer] (AASM) a standard diagnostic polysomnogram was performed monitoring EEG, EOG, EMG (chin and leg deviations), oxygen saturation, body position, digital video, respiratory effort and airflow. The sleep Stage and event scoring was based on the AASM Manual for the Scoring of Sleep and Associated Events 2007 edition. Apneas are defined as a drop in the peak thermal sensor excursion by >90% of baseline for at least 10 seconds. Hypopneas were scored using the 4% oxygen desaturation rule (4A-[employer]) and a decrease in the nasal pressure excursions by >30% of baseline for at least 10 seconds. Respiratory effort-related arousal (RERA's) is defined as a sequence of breaths lasting at least 10 seconds characterized by increasing respiratory effort or flattening of the nasal pressure waveform leading to an arousal from sleep when the sequence of breaths does not meet criteria for an apnea or hypopnea. Apnea Hypopnea index (AHI) is defined as the number of apneas and hypopneas occurring in an hour of sleep. Respiratory disturbance index (RDI) is defined as the number of apneas, hypopneas, and RERA's occurring in an hour of sleep. Mr. Gates's total sleep period time was 430 minutes. Total sleep time was 282 minutes. Sleep efficiency was 63%. Latency to sleep onset was 14.5 minutes with wake after sleep onset of 149.5 minutes. Total non-REM sleep time was 225.5 minutes. He spent 17% of that time in N1 sleep, 49% in N2 sleep and 14% in N3 sleep. REM latency was 203 minutes. Total REM sleep time was 56.5 minutes or 20% of total sleep time. There were 131 arousals from sleep on this study. 14 of these arousals were spontaneous, 8 were due to respiratory events, 96 were due to periodic limb movements of sleep and 13 were due to snoring. There were 407 periodic limb movements noted on this test. Limb movement index was 86.6. Limb movement with arousal index was 20.6. As stated above, this was a titration study. During this titration, Mr. Gates had 16 central apnea and 19 hypopnea. Overall, AHI was 7.5. 296 snoring events were recorded. Total sleep time with snoring was 5.4%. Mean saturation was 93% with saturations less than 89 for only 2.4 minutes of recorded time. This patient had paced rhythm noted on EKG monitoring. Heart rates ranged from a low of 47 beats per minute to 71 beats per minute. As stated above, this was a CPAP titration study. Mr. Gates used a ResMed Mirage FX nasal mask for his titration. He was titrated from a CPAP pressure of 4 to a CPAP pressure of 8 over the course of the night. He was observed on a pressure of 7 for 94.1 minutes of recorded time. 27 of those minutes was spent in non-supine REM sleep. AHI and RDI on this pressure were both 4.5 and saturations were less than 89 for only 0.1 minutes of recording time. At the very end of this study, pressures were increased to 8 and he was only observed on a pressure of 8 for 8.4 minutes of sleep time. He did have 1 central apnea and 2 hypopnea on this pressure. IMPRESSION AND PLAN: Suboptimal CPAP titration study in this patient with known obstructive sleep apnea. I would recommend that this patient be started on CPAP at a pressure of 8. The pressure of 7 appears to eliminate the vast majority of his apnea. A download should be reviewed in 1 month and further pressure adjustments can occur at that time.
== END | disposition home or self-care (01) ==
LOC: C.NEUR 21:00
PROVIDERS: ATTEND Family Medicine
DX: G47.33 Obstructive sleep apnea (adult) (pediatric) (principal); Z99.89 Dependence on other enabling machines and devices